=== PATIENT | male | born 1960 | race Caucasian/White ===

== ENCOUNTER 2019-01-13 10:48 | Outpatient (CLI) | payer BC ==
--- NOTE | 2019-01-13 14:20 | PET ---
PET CT: COMPARISON: CT abdomen/pelvis dated 07/27/17. 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 History of prostatectomy for prosta te cancer. TECHNIQUE: A PET CT was performed from the skull base to the mid thigh after administration of 11.9 mCi F18-FDG. FINDINGS: There is a 10.4 cm mass in the spleen. This is central low density which may represent necrosis. Regulo g the periphery of the mass, there is hypermetabolic activity with a max SUV value of 26.1. This mass appears to extend into the 11th intercostal space. There is a subcentimeter hypodensity in the liver, which was too small to definitely characterize. No obvious hypermetabolic activity is seen in this hypodensity, but this is likely below PET resolution . In the left upper lobe, there is a 2.9 cm nodule with a max SUV value of 23.6. There is a left pleura l effusion which does not demonstrate metabolic activity. In the right upper lobe, there is a 1.0 cm lesion with a max SUV value of 12.0. There is a 1.6 cm nodule within the fat just above the left hemidiaphragm with a max SUV value of 15. 6. Along the left hemidiaphragm, there is a focal area of hypermetabolic activity with a max SUV valu e of 5.8. There is a questionable lesion seen on the CT images which may be artifactual, but could al so represent a small nodule along the diaphragm. No suspicious areas of hypermetabolic activity seen within the neck or in the lower abdomen/pelvis. No suspicious areas of hypermetabolic activity seen within the skeleton. IMPRESSION: 1. There is a large splenic mass consistent with a diagnosis of splenic lymphoma. 2. There are nodules in the bilateral upper lobes suspicious for either metastatic disease or multif ocal lymphoma. 3. There are masses just above the immediately adjacent to the left hemidiaphragm. These are nonspec ific, but are concerning for additional disease/metastasis. POS: WHITNEY
== END 2019-01-13 10:49 | disposition home or self-care (01) ==
LOC: PET 10:48
PROVIDERS: ATTEND Internal Medicine Hematology & Oncology
DX: C83.37 Diffuse large B-cell lymphoma, spleen (principal); I08.1 Rheumatic disorders of both mitral and tricuspid valves; R91.8 Other nonspecific abnormal finding of lung field; D73.89 Other diseases of spleen; Z79.899 Other long term (current) drug therapy; Z85.89 Personal history of malignant neoplasm of other organs and systems
CPT/HCPCS: 78815; 93306; A9552

== ENCOUNTER 2019-02-25 08:51 | Outpatient (CLI) | payer BC ==
--- NOTE | 2019-02-25 10:52 | PET ---
Exam: PET CT SKULL TO MID THIGH: COMPARISON: 01/13/2019. HISTORY: Lymphoma. TECHNIQUE: A PET/CT was performed from the skull to the mid thigh after administration of 13 millicuries of F-18 FDG. Evaluation was performed on a Fl[employer] workstation. FINDINGS: NECK: No areas of hypermetabolic activity CHEST: Prior hypermetabolic activity related to pulmonary mass/nodule, has resolved. ABDOMEN/PELVIS: Prior hypermetabolic activity localizing to large splenic mass has resolved. SKELETON: Mild generalized uptake of marrow is likely due to posttreatment response. CT images used for attenuation correction show there is residual groundglass nodularity within the bi lateral upper lobes, smaller in size, relating to prior pulmonary nodules. There is diffuse nonspecific groundglass opacity involving the pulmonary parenchyma bilaterally, preferentially involv ing the lower lobes, with adjacent pleural-based density. Small hypodensity involving the liver near the junction of the medial segment of the left hepatic lobe and anterior segment of right hepati c lobe present, as well as hypodensity within the left hepatic lobe, too small to definitively characterize, grossly stable. IMPRESSION: 1. Interval resolution of prior hypermetabolic activity, which is consistent with interval response to therapy. 2. Interval decrease in size of bilateral pulmonary nodules with mild bilateral remnant nodularity re maining. There is also diffuse groundglass opacification of the lungs bilaterally, preferentially involving the lower lobes. Recommend clinical correlation to exclude an atypical infectious/inflammat ory process. Findings were conveyed via telephone to Dr. Dumont at the time of interpretation. CODE CR Transcribed Date/Time: 02/25/2019 11:02 AM
== END 2019-02-25 08:52 | disposition home or self-care (01) ==
LOC: PET 08:51
PROVIDERS: ATTEND Internal Medicine Hematology & Oncology
DX: C85.90 Non-Hodgkin lymphoma, unspecified, unspecified site (principal)
CPT/HCPCS: 78815; 80053; 82248; 83615; 84100; 84550; 87040; A9552

== ENCOUNTER 2019-03-02 08:30 | Day surgery (SDC) | payer BC ==
[2019-03-01 16:19] VITALS: BMI 26.9
[2019-03-02] MEDS ORDERED: METHOTREXATE SODIUM IT SCH (09:15)
[2019-03-02] MEDS ORDERED: SODIUM CHLORIDE 0.9% IT SCH (09:15)
--- NOTE | 2019-03-02 11:13 | RAD ---
LUMBAR PUNCTURE WITH FLUOROSCOPIC GUIDANCE: HISTORY: B-cell lymphoma. CSF acquisition for cytology and flow cytometry. Intrathecal chemotherapy administr ation. EXPOSURE: 0.3 minutes 47.1 microgray per m2 FINDINGS: Two-view supervisor toy parts former lumbar spine radiograph demonstrates 5 lumbar type vertebral bodies. No fracture or m alalignment. Pseudoarthrosis of the left and right L5 ala with the sacrum are noted, likely due to partial sacralization. FINDINGS: Successful lumbar puncture. A total of 8 cc of clear CSF was collected for evaluation. Methotrexate 12 mg was administered intrathecally. TECHNIQUE: Consent obtained to perform a lumbar puncture for CSF acquisition, as well as intrathecal chemotherap y administration. The L3-L4 level was deemed appropriate. The skin was prepped and draped in a sterile fashion, and 1% lidocaine, buffered with sodium bicarbonate, was used for local anesthesia. Under fluoroscopic guidance, a 22-gauge spinal needle was advanced into the CSF space. Via a short tubing catheter, a t otal of 8 cc of clear CSF was collected. Through the spinal needle, a total of 12 mg of methotrexate was administered over 5 minutes. There were no immediate or postprocedure complications . IMPRESSION: Successful lumbar puncture. Transcribed Date/Time: 03/02/2019 11:39 AM
== END 2019-03-02 11:50 | disposition home or self-care (01) ==
LOC: RAD 08:30
PROVIDERS: ATTEND Internal Medicine Hematology & Oncology
PROC: 009U3ZX Drainage of Spinal Canal, Percutaneous Approach, Diagnostic (ICD-10-PCS; principal; 2019-03-02)
DX: C83.37 Diffuse large B-cell lymphoma, spleen (principal); I25.10 Atherosclerotic heart disease of native coronary artery without angina pectoris; I25.2 Old myocardial infarction; Z79.2 Long term (current) use of antibiotics; Z79.82 Long term (current) use of aspirin; Z79.899 Other long term (current) drug therapy
CPT/HCPCS: 62270; 88112; 88184; J9250

== ENCOUNTER 2019-03-16 14:13 | Outpatient (CLI) | payer BC ==
--- NOTE | 2019-03-16 14:48 | RAD ---
CHEST TWO VIEWS: HISTORY: Ongoing fever. Productive cough. FINDINGS: Right central line and injection port. Heart size is within normal limits. Mild increase in the bro nchovascular markings bilaterally. No confluent pneumonia, overt edema, or pleural effusion. FINDINGS: 1. No acute intrathoracic disease. 2. No evidence for pneumonia. Findings were discussed with Dr. Laura staff at 4:30 p.m. CODE CR POS: OFF
--- NOTE | 2019-03-16 16:37 | ULT ---
EXAM: Bilateral lower extremity venous Doppler HISTORY: Bilateral lower extremity edema and fever. FINDINGS: Grayscale, color-flow, Doppler evaluation, spectral analysis of the bilateral lower extremities venou s structures is performed with 2-D imaging. The bilateral common femoral, superficial femoral, popliteal, posterior tibial, proximal greater saphenous and profunda femoral veins are imaged. There is normal luminal compressibility, flow, and augmentation in the visualized deep venous structu res of the bilateral lower extremities. IMPRESSION: No evidence of a deep vein thrombosis in the visualized deep venous structures bilaterally lower extr emities.
== END 2019-03-16 14:14 | disposition home or self-care (01) ==
LOC: BICRAD 14:13
PROVIDERS: ATTEND Internal Medicine Hematology & Oncology
DX: R50.9 Fever, unspecified (principal); R05 Cough; R60.0 Localized edema; I82.90 Acute embolism and thrombosis of unspecified vein; C18.1 Malignant neoplasm of appendix; C83.37 Diffuse large B-cell lymphoma, spleen
CPT/HCPCS: 71046; 93970

== ENCOUNTER 2019-03-16 17:09 | Inpatient (IN) | payer BC ==
[~2019-03-16 17:09] MED LIST: ISOVUE-370 76%-LOCM 1 ML ONE
[2019-03-16 17:55] LABS: Bilirubin Negative (Negative); Blood, Urine Negative (Negative); Clarity CLEAR (Clear); Glucose, Urine (Dipstick) Negative (Negative); Leukocyte Negative (Negative); Nitrite Negative (Negative); Protein, Urine (Dipstick) Trace mg/dL (Neg-Trace); Specific Gravity, Urine 1.029 (1.002-1.036); Urobilinogen 0.2 mg/dL (0.2-1.0); pH, Urine 6.5 (5.0-9.0)
[2019-03-16 18:11] LABS: #Lymphocytes 0.2 thou/uL (1.20-3.40); #Monocytes 0.4 thou/uL (0.11-0.59); #Neutrophils 5.5 thou/uL (1.40-6.50); %Basophils 0.3 % (0.0-1.0); %Eosinophils 0.4 % (0.0-10.0); %Lymphocytes 3.8 % (21.0-51.0); %Monocytes 6.3 % (0.0-10.0); %Neutrophils 89.2 % (42.0-75.0); Hemoglobin 9.5 g/dL (14.0-18.0); Mean Corpuscular HGB CONC 33.3 g/dL (32.0-36.0); Mean Corpuscular Hemoglobin 31.3 pg (27.0-31.0); Mean Platelet Volume 9.4 fL (7.4-10.4); Platelet Count 103 thou/uL (130-400); RBC Distribution Width 19.8 % (11.5-14.5); Red Blood Cell (RBC) Count 3.03 mill/uL (4.70-6.10); White Blood Cell (WBC) Count 6.1 thou/uL (4.8-10.8)
[2019-03-16 18:27] LABS: ALT (SGPT) 11 U/L (8-55); AST (SGOT) 26 U/L (5-34); Albumin 3.9 g/dL (3.5-5.0); Alkaline Phosphatase 58 U/L (40-150); Anion Gap 16 mmol/L (10-20); BUN (Urea Nitrogen) 13 mg/dL (8.4-25.7); Bilirubin, Total 0.4 mg/dL (0.2-1.2); Calc. Creatinine Clearance 0 mL/min (70-130); Calcium 8.6 mg/dL (7.8-10.44); Carbon Dioxide 20 mmol/L (22-29); Chloride 101 mmol/L (98-107); Estimated GFR-MDRD 68; Globulin 2.4 g/dL (2.4-3.5); Glucose 112 mg/dL (70-105); Potassium 3.8 mmol/L (3.5-5.1); Protein, Total 6.3 g/dL (6.0-8.3); Sodium 133 mmol/L (136-145)
[2019-03-16] MEDS ORDERED: Cefepime 2 GM VIAL ONE (18:29)
[2019-03-16] MEDS ORDERED: Acetaminophen 500 MG TAB ONE (18:29)
[2019-03-16 18:30] LABS: Elliptocytes SLIGHT = 2-5 cells (100X) (0-1/hpf); MDiff Complete? YES; Macrocytosis SLIGHT = 6-15 cells (100X) (0-5/hpf); Microcytosis SLIGHT = 6-15 cells (100X) (0-5/hpf); Platelet Morphology Comment Appears Decreased; Polychromasia SLIGHT = 2-3 cells (100X) (0-2/hpf)
[2019-03-16] MEDS ORDERED: Vancomycin HCl 1.75 GM in Sodium Chloride 0.9% 500 ML IVPB SCH (18:45)
--- NOTE | 2019-03-16 19:19 | CT ---
Contrast-enhanced CTA chest. HISTORY: 58-year-old with history of lymphoma with cough and fever. Contrast-enhanced CTA of the chest performed. 2-D and 3-D reconstruction images performed on an [employer] LS15 3-D workstation. Images demonstrate a 9.0 x 10.0 mm left upper lobe pulmonary parenchymal nodule. Diffuse airspace opacities seen in the left upper lobe and left lung base and lower lobe compatible w ith the possible airspace disease including pneumonia. No definite evidence of air bronchograms seen. Extensive coronary artery calcifications seen. There is a left inferior anterior splenic mass which appears to have extended extracapsularly into th e left intercostal space and peritoneal space and along the peritoneal lining. This mass measures 6.1 x 8.7 cm and may represent splenic metastatic disease. The liver contains a small left lobe cyst unchanged since previous CT from 07/27/2017. Some distal esophageal thickening compatible with esophagitis seen. The pancreas is unremarkable. Adrenal glands and visualized portions of the kidneys unremarkable. No evidence of filling defects seen in the pulmonary arteries to suggest pulmonary emboli. IMPRESSION: 1.: Splenic mass 2: Left upper lobe lung parenchymal pulmonary lesion concerning for metastatic disease. 3: Left upper and lower lobe areas of airspace opacities concerning for diffuse pneumonia.
[2019-03-17] MEDS: Acetaminophen 325 MG TAB PO PRN ×4 (00:06→20:47)
[2019-03-17 04:05] VITALS: BMI 27.7
[2019-03-17] MEDS ORDERED: Ibuprofen 200 MG TAB PO SCH (04:15)
[2019-03-17] MEDS ORDERED: Ondansetron ODT 4 MG TAB PO PRN (05:43)
[2019-03-17] MEDS ORDERED: Ondansetron PF 4 MG/2 ML Vial IVP PRN (05:43)
[2019-03-17] MEDS ORDERED: Cefepime 2 GM in Sodium Chloride 0.9% 100 ML IVPB SCH (06:00)
[2019-03-17] MEDS ORDERED: Vancomycin HCl 1 GM in Premix Bag 1 BAG IVPB SCH (06:00)
--- NOTE | 2019-03-17 06:51 | HP ---
PRIMARY CARE PHYSICIAN: Jay Mathew MD CODE STATUS: Full code. TIME OF EVALUATION: 5:20 a.m. CHIEF COMPLAINT: Fever. HISTORY OF PRESENT ILLNESS: This is a 58-year-old male patient with past medical history of lymphoma, follows with Dr. Bennett as outpatient. The patient also have medical history of coronary artery disease, hyperlipidemia, high cholesterol, hypertension. The patient came to the hospital after having fever, associated with cough and scant sputum production with no clear triggers, no alleviating factors. Symptoms have been present for the past 2 to 3 days. The patient called Dr. Bennett and she asked him to come to the hospital. Symptoms were reported as severe. REVIEW OF SYSTEMS: CONSTITUTIONAL: The patient has fever, chills, generalized weakness. RESPIRATORY: The patient has cough, scant sputum production, and shortness of breath. CARDIOVASCULAR: No chest pain, or palpitation. GASTROINTESTINAL: No nausea, vomiting, diarrhea, or abdominal pain. WARP SPLITTER: No dizziness, headache, or feeling lightheaded. GENITOURINARY: No burning on urination. EXTREMITIES: No leg swelling. All other systems were reviewed and negative except for the findings mentioned above. PAST MEDICAL HISTORY: As mentioned in the HPI. FAMILY HISTORY: Reviewed and no contributory to current presentation. PAST SURGICAL HISTORY: Positive for appendectomy, colostomy, prostatectomy, tonsillectomy. PSYCHIATRIC HISTORY: No previous psychiatric history. SOCIAL HISTORY: No alcohol. No drugs. No smoking history. KNOWN ALLERGIES: No known drug allergies. REPORTED MEDICATIONS: 1. Balsalazide. 2. Azathioprine. 3. Losartan/hydrochlorothiazide. 4. Aspirin. 5. Crestor. 6. Zetia. 7. Metoprolol. PHYSICAL EXAMINATION: VITAL SIGNS: On presentation, blood pressure 105/59 with heart rate 131, respiratory rate was 20, temperature 102.6, pain 0/10, oxygen saturation 97% on room air. GENERAL APPEARANCE: The patient is alert. The patient is warm, febrile, oriented, not in acute distress. HEENT: Eyes, normal conjunctivae. Moist oral mucosa. Anicteric. No JVD. RESPIRATORY: The patient has bilateral air entry with bilateral rales. No wheezing. Symmetric expansion. CARDIOVASCULAR: The patient is tachycardic. Regular rhythm. No murmurs. No gallop. No edema. ABDOMEN: Soft, normal bowel sounds. MUSCULOSKELETAL: Baseline range of motion and strength. No tenderness. SKIN: Warm and intact. No pallor. No rash. No redness. Peripheral pulses are present. Capillary refill seems to be intact. NEUROLOGIC: No evidence of any new focal weakness. Baseline speech. Cranial nerves seems to be intact. PSYCHIATRIC: The patient is in good mood. No anxiety. Optimal judgment. DIAGNOSTIC DATA: EKG was reviewed. The patient has sinus tachycardia at the rate of 128, OK 160, QRS 92, QT corrected 475. LABORATORY DATA: Labs were reviewed. The patient has white count 6.1, hemoglobin 9.5, MCV 94, platelet count 103. Chemistry; sodium 133, potassium 3.8, chloride 101, carbon dioxide 20, anion gap 16, BUN 13, creatinine 1.1, GFR 68, glucose 112, lactic acid 1.8, calcium 9.6, total bilirubin 0.4, AST 26, ALT 11, alkaline phosphatase 58. Serum total protein 6.3, albumin 3.9, globulin 2.4, albumin globulin ratio is 1.6. Urine was done and was negative. ASSESSMENT AND PLAN: The patient will be placed in the hospital with following medical problems: 1. Sepsis. The patient has tachycardia, fever, source is pneumonia, the patient has been started on broad-spectrum antibiotics, given immunosuppression due to lymphoma and also the patient has been in the hospital environment recently, so we are covering for possible MRSA/Pseudomonas, culture has been sent and we will follow sensitivity to adjust treatment. 2. Pneumonia in the left upper and lower lobe as seen on the CT of the chest. Treatment as above. 3. History of lymphoma, stage IV. The patient is following with Dr. Bennett, receiving chemo as per Oncology recommendations. 4. Coronary artery disease, this problem is chronic, seems to be stable, we will follow. Reconcile home medications. 5. History of hyperlipidemia. Low-cholesterol diet is advised. Reconcile home medications. 6. Controlled hypertension, reconcile home medications. Adjust as needed. We will not treat aggressively since the patient is febrile and has risk for hypotension and septic shock. 7. Hyponatremia, sodium 133, this is mild, no need for any acute intervention other than gentle hydration. 8. Normocytic anemia, may be related to previous chemo. We will monitor hemoglobin and treat accordingly. Job ID: [id number] [facility]
[2019-03-17] MEDS ORDERED: Loperamide HCl 2 MG CAP PO PRN (07:05)
[2019-03-17] MEDS ORDERED: Artificial Tears 18 DROP/0.9 ML EA EYE PRN (07:05)
[2019-03-17] MEDS ORDERED: Sodium Chloride 0.65% Nasal 44 ML BOT EA NARE PRN (07:05)
[2019-03-17] MEDS ORDERED: Loratadine 10 MG TAB PO PRN (07:05)
[2019-03-17] MEDS ORDERED: Cepastat Lozenges 1 LOZ PO PRN (07:05)
[2019-03-17] MEDS ORDERED: hydrALAZINE 20 MG/ML VIAL SLOW IVP PRN (07:05)
[2019-03-17] MEDS ORDERED: Bisacodyl 10 MG SUPP PR PRN (07:05)
[2019-03-17] MEDS ORDERED: Diabetic Tussin 200 MG/10 ML UDCUP PO PRN (07:05)
[2019-03-17] MEDS ORDERED: HYDROcodone/Acetaminophen 5/325 mg Tablet PO PRN (07:05)
[2019-03-17] MEDS ORDERED: Eucerin (Mineral Oil/Petrolatum,White) 30 gm Jar TOP PRN (07:05)
[2019-03-17] MEDS ORDERED: Lidocaine 4% PF 5 ML AMP NEB SCH (08:00)
[2019-03-17] MEDS: Fluticasone Propionate Nasal Spray 16 gm Bottle NASAL SCH ×2 (09:40→20:45)
--- NOTE | 2019-03-17 09:47 | PDOC.PN ---
- Subjective Encounter Start Date: 03/17/19 Encounter Start Time: 07:00 -: old records requested/rev pt had fever this morning, he denies chest pain, cough, dyspnea Patient seen and examined. No overnight events - Objective Resuscitation Status - Order Detail: 03/17/19 05:43 Resuscitation Status Routine Resuscitation Status: FULL: Full Resuscitation MAR Reviewed: Yes Vital Signs & Weight: Vital Signs (12 hours) Temp Pulse Resp BP Pulse Ox 03/17/19 07:53 98.8 F 88 16 120/64 96 03/17/19 03:46 102.5 F H 106 H 16 131/60 97 03/16/19 23:18 100.6 F H 98 16 116/57 L 99 03/16/19 21:57 98.3 F 94 12 119/60 97 03/16/19 21:55 99 Weight Weight 188 lb 0.163 oz Result Diagrams: 03/16/19 17:56 03/16/19 17:56 Radiology Reviewed by me: Yes (CTA chest reviewed) Phys Exam - Physical Examination Constitutional: NAD HEENT: PERRLA, moist MMs, sclera anicteric Neck: no JVD, supple Respiratory: no wheezing, no rales, no rhonchi Cardiovascular: RRR, no significant murmur, no rub Gastrointestinal: soft, non-tender, no distention, positive bowel sounds Musculoskeletal: no edema, pulses present Neurological: non-focal, normal sensation, moves all 4 limbs Lymphatic: no nodes Psychiatric: normal affect, A&O x 3 Skin: no rash, normal turgor Dx/Plan (1) Anemia, normocytic normochromic Code(s): D64.9 - ANEMIA, UNSPECIFIED Status: Acute Comment: may be related with chemotherapy, lymphoma (2) Lymphoma Status: Acute Qualifiers: Lymphoma type: unspecified type Comment: metastatic to lung and spleen (3) Multifocal pneumonia Code(s): J18.9 - PNEUMONIA, UNSPECIFIED ORGANISM Status: Acute Comment: with underlying immunocompromised state (4) Sepsis Code(s): A41.9 - SEPSIS, UNSPECIFIED ORGANISM Status: Acute (5) Thrombocytopenia Code(s): D69.6 - THROMBOCYTOPENIA, UNSPECIFIED Status: Acute Comment: may be due to sepsis, as well as possibly lymphoma and chemotherapy (6) Dyslipidemia Code(s): E78.5 - HYPERLIPIDEMIA, UNSPECIFIED Status: Chronic (7) Hypertension Code(s): I10 - ESSENTIAL (PRIMARY) HYPERTENSION Status: Chronic - Plan cont current plan of care, continue antibiotics * continue cefepime, levaquin and vancomycin * pulmonary consulted and plan for bronchoscopy later today * oncology following * repeat labs tomorrow * follow culture * medication reviewed as below * symptomatic treatment Review of Systems - Review of Systems Constitutional: fever. negative: chills, sweats, weakness, malaise, other Respiratory: negative: Cough, Dry, Shortness of Breath, Hemoptysis, SOB with Excertion, Pleuritic Pain, Sputum, Wheezing Cardiovascular: negative: chest pain, palpitations, orthopnea, paroxysmal nocturnal dyspnea, edema, light headedness, other Gastrointestinal: negative: Nausea, Vomiting, Abdominal Pain, Diarrhea, Constipation, Melena, Hematochezia, Other Genitourinary: negative: Dysuria, Frequency, Incontinence, Hematuria, Retention , Other Musculoskeletal: negative: Neck Pain, Shoulder Pain, Arm Pain, Back Pain, Hand Pain, Leg Pain, Foot Pain, Other Skin: negative: Rash, Lesions, Mark, Bruising, Other - Medications/Allergies Allergies/Adverse Reactions: Allergies Allergy/AdvReac Type Severity Reaction Status Date / Time No Known Allergies Allergy Verified 03/17/19 00:13 Medications: Current Medications Acetaminophen (Tylenol) 650 mg PO Q6H PRN PRN Reason: Headache/Fever or Pain Last Admin: 03/17/19 00:06 Dose: 650 mg Hydrocodone Bitart/Acetaminophen ([place] 5/325) 1 tab PO Q4H PRN PRN Reason: Moderate Pain (4-6) Albuterol/Ipratropium (Duoneb) 3 ml NEB [facility] Stop: 03/17/19 18:00 Artificial Tears (Tears Naturale) 2 drop EA EYE PRN PRN PRN Reason: Dry Eyes Aspirin (Aspirin) 325 mg PO DAILY [facility] Azathioprine (Imuran) 200 mg PO DAILY [facility] Balsalazide (Colazal) 1,500 mg PO BID [facility] Bisacodyl (Dulcolax) 10 mg [place] DAILYPRN PRN PRN Reason: Constipation Ezetimibe (Zetia) 10 mg PO HS [facility] Fluticasone Propionate (Flonase Nasal [place]) 0 gm NASAL DAILY [facility] Guaifenesin (Mucinex) 600 mg PO Q12HR [facility] Guaifenesin (Robitussin Sf) 200 mg PO Q4H PRN PRN Reason: Cough Hydralazine HCl (Apresoline) 10 mg SLOW IVP Q4H PRN PRN Reason: SBP > 180 and HR < 70 Hydrochlorothiazide (Hydrochlorothiazide) 6.25 mg PO DAILY [facility] Vancomycin HCl 1 gm/ Device 200 mls @ 200 mls/hr IVPB 0600,1800 [facility] Levofloxacin 750 mg/ Device 150 mls @ 100 mls/hr IVPB Q24HR [facility] Last Admin: 03/17/19 08:25 Dose: 150 mls Cefepime HCl 2 gm/ Sodium (Chloride) 100 mls @ 200 mls/hr IVPB Q12HR [facility] Sodium Chloride (Normal Saline 0.9%) 1,000 mls @ 50 mls/hr IV .Q20H [facility] Lidocaine HCl (Xylocaine 4% Pf) 5 ml NEB [facility] Stop: 03/17/19 18:00 Loperamide HCl (Imodium) 2 mg PO PRN PRN PRN Reason: Diarrhea/Loose Stools Loratadine (Claritin) 10 mg PO DAILYPRN PRN PRN Reason: Sinus Symptoms Losartan Potassium (Cozaar) 50 mg PO DAILY [facility] Metoprolol Succinate (Toprol Xl) 25 mg PO DAILY [facility] Last Admin: 03/17/19 08:26 Dose: 25 mg Mineral Oil/White Petrolatum (Eucerin Cream) 0 gm TOP BIDPRN PRN PRN Reason: Dry Skin Miscellaneous Medication (Pharmacy To Dose) 1 each IVPB ONE PRN PRN Reason: DOSING Stop: 04/16/19 05:18 Ondansetron HCl (Zofran Odt) 4 mg PO Q6H PRN PRN Reason: Nausea/Vomiting Ondansetron HCl (Zofran) 4 mg IVP Q6H PRN PRN Reason: Nausea/Vomiting Rosuvastatin Calcium (Crestor) 20 mg PO HS [facility] Saccharomyces Boulardii (Florastor) 250 mg PO DAILY [facility] Senna/Docusate Sodium (Senokot S) 2 tab PO BID PRN PRN Reason: Constipation Sodium Chloride (Flush - Normal Saline) 10 ml IVF PRN PRN PRN Reason: Saline Flush Sodium Chloride ([place] Nasal [place] 0.65%) 0 ml EA NARE QIDPRN PRN PRN Reason: Nasal Congestion Throat Lozenges (Cepastat Lozenges) 1 zach PO Q2H PRN PRN Reason: Sore Throat Zolpidem Tartrate (Ambien) 5 mg PO HSPRN PRN PRN Reason: Insomnia
[2019-03-17] MEDS ORDERED: Lidocaine 1% PF 5 ML VIAL ONE (09:58)
[2019-03-17] MEDS ORDERED: Succinylcholine Chloride 20 MG/ML 10 ml SYRINGE FS ONE (09:58)
[2019-03-17] MEDS ORDERED: PROPOFOL 200 MG/20 ML VIAL ONE (09:58)
[2019-03-17] MEDS ORDERED: Ondansetron PF 4 MG/2 ML Vial ONE (09:58)
[2019-03-17] MEDS ORDERED: Ketorolac Tromethamine 30 MG/ML VIAL ONE ×2 (09:58→14:14)
[2019-03-17] MEDS: Cefepime 2 GM in Sodium Chloride 0.9% 100 ML IVPB SCH ×2 (10:23→20:44)
[2019-03-17] MEDS: Losartan 25 MG TAB PO SCH (13:41)
[2019-03-17] MEDS: guaiFENesin ER 600 MG TAB PO SCH ×2 (13:41→20:47)
[2019-03-17] MEDS: azaTHIOprine 50 MG TAB PO SCH (13:41)
[2019-03-17] MEDS: Aspirin 325 MG TAB PO SCH (13:41)
[2019-03-17] MEDS: Hydrochlorothiazide 25 MG TAB PO SCH (13:41)
[2019-03-17] MEDS: Saccharomyces boulardii 250 MG CAP PO SCH (13:42)
[2019-03-17] MEDS ORDERED: Fentanyl 100 MCG/2 ML VIAL ONE (14:12)
[2019-03-17] MEDS ORDERED: Promethazine HCl 25 MG/ML VIAL IM PRN (14:46)
[2019-03-17] MEDS ORDERED: HYDROmorphone 2 MG/ML VIAL SLOW IVP PRN (14:46)
[2019-03-17] MEDS ORDERED: Ondansetron HCl/PF 4 MG/2 ML Vial IVP PRN (14:46)
[2019-03-17] MEDS ORDERED: PACU-Morphine 4MG/ML VIAL SLOW IVP PRN (14:46)
[2019-03-17] MEDS ORDERED: Promethazine HCl 25 MG/ML VIAL SLOW IVP PRN (14:46)
--- NOTE | 2019-03-17 14:58 | CON ---
DATE OF CONSULTATION: 03/17/2019 CONSULTING PHYSICIAN: Dr. Bennett. REASON FOR CONSULTATION: Fever and pulmonary infiltrates. HISTORY OF PRESENT ILLNESS: A 58-year-old male, who is currently receiving cycle chemotherapy for lymphoma. Over the past several days, he has had intractable fever, which has not been responsive to Levaquin as an outpatient. He has a cough. He does produce some sputum, but does not know what color it is. He says he has never had pulmonary issues in the past. PAST MEDICAL HISTORY: He has had lymphoma, prostate cancer, and appendix cancer. PAST SURGICAL HISTORY: Appendectomy, colostomy, prostatectomy, and tonsillectomy. ALLERGIES: NONE. SOCIAL HISTORY: Nonsmoker. Does not consume alcohol. 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 MEDICATIONS: Prior to admission: 1. Balsalazide. 2. Azathioprine. 3. Losartan/hydrochlorothiazide. 4. Aspirin. 5. Crestor. 6. Zetia. 7. Metoprolol. REVIEW OF SYSTEMS: Otherwise remarkable except for the fever. FAMILY MEDICAL HISTORY: Unremarkable. PHYSICAL EXAMINATION: VITAL SIGNS: Temperature 102.5, pulse 106, respirations 16, O2 saturation 97%, and blood pressure 131/60. GENERAL: The patient is awake and alert, in no acute distress, but sweaty all over. HEENT: He has alopecia. Oropharynx, no lesions. NECK: No adenopathy or JVD. LUNGS: Clear to auscultation without wheezing. CARDIAC: S1 and S2. Slightly tachycardic. ABDOMEN: Soft and nontender. Past surgical scars noted. EXTREMITIES: No clubbing, cyanosis, or edema. NEUROLOGIC: Grossly intact throughout. LABORATORY DATA: White blood cell count 6.1, hematocrit 28.5, and platelet count 103. Sodium 133, potassium 3.8, chloride 101, CO2 of 20, BUN 13, creatinine 1.1, and glucose 112. His CT shows scant left upper lobe infiltrate with some nodularity. ASSESSMENT: Lymphoma with high fevers despite appropriate treatment with antibiotics. The patient is immunocompromised from previous chemotherapy. He is also taking Imuran. PLAN: 1. Bronchoscopy with lavage and transbronchial biopsies. 2. The patient agreed to the procedure. We discussed risks including bleeding, infection, external lung puncture, and reaction to sedation. He is agreeable to proceed. Job ID: [id number]
--- NOTE | 2019-03-17 16:12 | CON ---
DATE OF CONSULTATION: 03/17/2019 HISTORY OF PRESENT ILLNESS: Mr. Craig is a 58-year-old male with a recent diagnosis of stage IV diffuse large B-cell lymphoma, currently getting CHOP, Rituxan chemotherapy, status post cycle #3 two and half weeks prior to this admission. He has done very well with treatment. However, his second cycle of chemotherapy on day 13 or 14, he developed high fever of 102. He was treated with ciprofloxacin and eventually the fever went away, but was thought to be viral. He was given cycle #3 two and half weeks ago and around day 12 or 13, the fever did resume up to 103 at home. He has been treated as an outpatient with levofloxacin over the last several days, but fever has continued, and therefore he is admitted for fever of unknown origin. As an outpatient, a chest x-ray was done, which did not show any infiltrates. He also had bilateral lower extremity ultrasounds, which did not show DVT. He had blood cultures and urine culture done, which are pending, and his urinalysis was normal. In the emergency room, a CT angiogram was done to rule out pulmonary embolism and left upper lobe and lower lobe infiltrate were seen, more of an airspace opacity, possibly consistent with pneumonia. He has mild cough, but nothing productive. No hemoptysis. He has mild shortness of breath, but it is very mild and he is quite functional. He denies significant back pain or bone pain. Notably, he has been on Imuran for some time for Crohn disease, but has no current diarrhea or bowel issues. PAST MEDICAL HISTORY: 1. Stage IV diffuse large B-cell lymphoma, called stage IV because of probable lung metastases on PET scan done earlier this year, status post cycle #3 of CHOP, Rituxan chemotherapy. 2. History of adenocarcinoma of the appendix in remission since 2017. 3. History of prostate cancer, status post prostatectomy with complications at [facility] last year including need for a urethroplasty. 4. Crohn disease, stable on Imuran. 5. Hypertension. CURRENT MEDICATIONS: 1. Tylenol p.r.n. 2. [place] p.r.n. 3. DuoNeb p.r.n. 4. Aspirin 325 mg p.o. daily. 5. Imuran 200 mg p.o. daily. 6. Colazal 1500 mg p.o. b.i.d. 7. Dulcolax 10 mg p.o. daily. 8. Cefepime 2 g IV q.12 hours. 9. Zetia 10 mg p.o. q.h.s. 10. Flonase p.r.n. 11. Guaifenesin p.r.n. 12. Mucinex p.r.n. 13. Hydralazine p.r.n. 14. Hydrochlorothiazide 6.25 mg p.o. daily. 15. Levofloxacin 750 mg IV daily. 16. Imodium 2 mg p.o. q.4 hours p.r.n. 17. Claritin 10 mg p.o. daily. 18. Cozaar 50 mg p.o. daily. 19. Metoprolol 25 mg p.o. daily. 20. Mineral oil p.r.n. 21. Zofran 4 mg p.o. q.6 hours p.r.n. 22. Crestor 20 mg p.o. q.h.s. 23. Florastor 200 mg p.o. daily. 24. Senokot 2 tablets p.o. b.i.d. p.r.n. 25. Cepastat lozenges p.r.n. 26. Vancomycin 1 g IV q.12 hours. 27. Ambien 5 mg p.o. q.h.s. p.r.n. ALLERGIES: NO KNOWN DRUG ALLERGIES. SOCIAL HISTORY: He lives near [place] with his , who is quite supportive. He also has several children, who are supportive. He denies significant tobacco or alcohol use. FAMILY HISTORY: Noncontributory. REVIEW OF SYSTEMS: Otherwise, 10-point review of systems is negative. PHYSICAL EXAMINATION: VITAL SIGNS: Temperature max 102.5, at home it was 103.1; current temperature 98.8; respirations 16; pulse in the 90s; blood pressure 131/60. GENERAL: He is alert, awake, oriented x3. He is in no acute distress, quite pleasant. HEENT: Extraocular muscles are intact. Pupils are reactive to light. He has no oral cavity lesions. NECK: Supple without lymphadenopathy. CARDIOVASCULAR: Regular rhythm. LUNGS: Clear to auscultation. No crackles. ABDOMEN: Hypoactive bowel sounds. Soft, nontender, nondistended. His left upper quadrant pain has resolved with treatment. LABORATORY DATA: White blood cell count 6.1, hemoglobin 9.5, platelets 103. Sodium 133, potassium 3.8, chloride 101, CO2 of 20, BUN 13, glucose 112, lactic acid 1.8, calcium 8.6. Liver function tests are normal. Urinalysis was clear and yellow with no nitrites or wbc's. IMAGING STUDIES: CT scan of the chest done in the emergency room shows left inferior anterior splenic mass which measures 6.1 x 8.7 cm, this was not compared to his prior films. There was a 9 x 10 mm left upper lobe pulmonary parenchymal nodule as well as diffuse airspace opacities in the left upper lobe and left lung base and lower lobe compatible with possible airspace disease including pneumonia. ASSESSMENT: Mr. Craig is a 58-year-old male with: 1. 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 2. Continued fever despite outpatient management and aggressive antibiotics with a normal white blood cell count. 3. History of adenocarcinoma of the appendix. 4. History of prostate cancer. 5. Air space disease in the left lobe, left lung. 6. Longstanding Imuran use for Crohn disease. PLAN: 1. I discussed with the patient that this could be an atypical infection. We have consulted Pulmonary and hopefully bronchoscopy can be done to help rule out atypical infectious etiologies. 2. I have discussed the case with wood scaler, and we will see if they have anything to add. 3. We have consulted Infectious Disease. 4. Continue high-dose antibiotics. 5. Continue hydration and anti-inflammatories. 6. We will consider doing cycle #4. 7. We will have to see how he is doing with his fever. 8. We will follow with you. Job ID: [id number]
[2019-03-17 16:31] LABS: Ref Lab Test Ordered THIO METS; Reference Lab Name PROMETHEUS
--- NOTE | 2019-03-17 18:33 | CON ---
DATE OF CONSULTATION: 03/17/2019 CHIEF COMPLAINT: Fever. HISTORY OF PRESENT ILLNESS: Mr. Craig is a 58-year-old man, who has been followed by Dr. Mckinney for nava ulcerative colitis diagnosed in 2001. His ulcerative colitis has been in remission with balsalazide and azathioprine for years. He was diagnosed with lymphoma around November. He has received 3 cycles of chemotherapy now with the most recent one being about 3 weeks ago. About a week ago, he started having fevers and chills. He has not had nausea or vomiting. No abdominal pain, diarrhea, or constipation. No blood in the stool. He has one or two formed stools per day, which is remained at his baseline. He has had no chest pain. He has had some cough and was found to have pulmonary infiltrates by imaging. He has been on antibiotics, but the fevers have persisted. PAST MEDICAL HISTORY: 1. Lymphoma diagnosed around 3 months ago, for which he is receiving chemotherapy. 2. History of cancer of the appendix. He had right hemicolectomy and multiple lymph nodes that were negative with that cancer. He did not require chemotherapy or systemic treatment for the appendiceal cancer. 3. History of prostate cancer, status post prostatectomy in 2018. 4. [place] ulcerative colitis diagnosed around 2001, which has been in remission on azathioprine and balsalazide. In the last clinic notes indicate that he has been taking azathioprine 200 mg daily. 5. The patient's last colonoscopy was in June 2018 and showed the patient to be in remission. 6. Hypertension and hyperlipidemia. PAST SURGICAL HISTORY: Right hemicolectomy, prostatectomy, tonsillectomy, and multiple colonoscopies. FAMILY HISTORY: Negative for GI malignancy. SOCIAL HISTORY: No alcohol, tobacco, or drugs. ALLERGIES: NONE. CURRENT MEDICATIONS: Prior to admission: 1. Azathioprine 200 mg daily. 2. Balsalazide 750 mg capsules two capsules twice daily. 3. He has also been taking losartan with hydrochlorothiazide, aspirin, Crestor, Zetia, and metoprolol. REVIEW OF SYSTEMS: Negative x10 systems reviewed except as stated in history of present illness. PHYSICAL EXAMINATION: VITAL SIGNS: Temperature 102.2, pulse 97, and blood pressure 150/68. GENERAL: He is in no acute distress. He is awake and alert. HEENT: Eyes have no scleral icterus. Oropharynx is clear without lesions. No cervical or supraclavicular lymphadenopathy. LUNGS: Clear to auscultation bilaterally. HEART: Regular rate and rhythm without murmur. ABDOMEN: Soft, nontender, and nondistended. Bowel sounds are present. EXTREMITIES: No lower extremity edema. NEUROLOGIC: Cranial nerves are grossly intact. LABORATORY DATA: White blood cell count 6.1, hemoglobin 9.5, platelets 103. Creatinine 1.11. Bilirubin 0.4. AST 26, ALT 11, alkaline phosphatase 58, and albumin 3.9. IMPRESSION: 1. Lymphoma, for which he is receiving chemotherapy. His last dose 3 weeks ago. 2. Fever. He has been noted to have pulmonary infiltrates by CT of the chest and is planned to undergo bronchoscopy by Dr. Rodriguez. 3. [place] ulcerative colitis, which has been in remission on azathioprine and balsalazide. We will not plan on stopping these medications at this time. Given his anemia and thrombocytopenia and increased risks with immunosuppression, I will check thiopurine metabolite levels. 4. History of appendiceal cancer, status post right hemicolectomy. RECOMMENDATIONS: 1. He will continue antibiotics and further treatment per the hospitalist and Pulmonary Services. 2. We will check thiopurine metabolite levels. In the meantime, we will continue the azathioprine and balsalazide at his usual doses. Job ID: [id number]
[2019-03-17] MEDS: Sodium Chloride 0.9% 1,000 ML IV SCH (20:43)
[2019-03-17] MEDS: Ezetimibe 10 MG TAB PO SCH (20:47)
[2019-03-17] MEDS: Rosuvastatin 20 MG TAB PO SCH (20:48)
[2019-03-17] MEDS: Zolpidem Tartrate 5 MG TAB PO PRN (20:51)
--- NOTE | 2019-03-17 22:15 | OP ---
DATE OF PROCEDURE: 03/17/2019 PROCEDURE: Bronchoscopy. PREOPERATIVE DIAGNOSES: Lymphoma, fever of unknown origin. POSTOPERATIVE DIAGNOSIS: Lymphoma, fever of unknown origin. ANESTHESIA: General endotracheal. DESCRIPTION OF PROCEDURE: Informed consent was obtained prior to the procedure. The patient understood the risks involved and agreed to proceed. The patient was brought to the endoscopy suite. He was intubated by the nurse and director of outpatient services with an 8.0 endotracheal tube. Using an Olympus bronchoscope, the scope was placed through an adapter into the patient's endotracheal tube while he was on volume cycled ventilation. The trachea was normal in appearance. The right upper lobe, right middle lobe, and right lower lobe were normal in appearance. The left lower lobe and left upper lobe were normal in appearance. Bronchoalveolar lavage was performed in the left upper lobe as that was the area that seemed to be most affected by the CT scan that I read this morning. Approximately 100 mL of normal saline was instilled and aspirated. This was sent for routine studies and Pneumocystis stain. He tolerated the procedure well and sent to the recovery area in stable condition. Job ID: [id number]
[2019-03-17] MEDS: Vancomycin HCl 1 GM in Premix Bag 1 BAG IVPB SCH (23:15)
[2019-03-18] MEDS ORDERED: Ibuprofen 600 MG TAB PO PRN (00:02)
[2019-03-18] MEDS ORDERED: Ibuprofen 200 MG TAB PO PRN (00:36)
[2019-03-18] MEDS ORDERED: Acetaminophen 650 MG in Premix Bag 1 BAG IVPB PRN (03:00)
[2019-03-18 06:06] LABS: #Lymphocytes 0.2 thou/uL (1.20-3.40); #Monocytes 0.4 thou/uL (0.11-0.59); #Neutrophils 3.7 thou/uL (1.40-6.50); %Basophils 0.1 % (0.0-1.0); %Eosinophils 0.4 % (0.0-10.0); %Lymphocytes 4.5 % (21.0-51.0); %Monocytes 9.2 % (0.0-10.0); %Neutrophils 85.8 % (42.0-75.0); Mean Corpuscular HGB CONC 33.2 g/dL (32.0-36.0); Mean Corpuscular Volume 93.4 fL (78.0-98.0); Mean Platelet Volume 8.6 fL (7.4-10.4); Platelet Count 109 thou/uL (130-400); RBC Distribution Width 20.2 % (11.5-14.5); Red Blood Cell (RBC) Count 2.59 mill/uL (4.70-6.10); White Blood Cell (WBC) Count 4.3 thou/uL (4.8-10.8)
[2019-03-18 06:36] LABS: Anion Gap 13 mmol/L (10-20); BUN (Urea Nitrogen) 12 mg/dL (8.4-25.7); Calc. Creatinine Clearance 89 mL/min (70-130); Calcium 8.6 mg/dL (7.8-10.44); Carbon Dioxide 22 mmol/L (22-29); Chloride 104 mmol/L (98-107); Estimated GFR-MDRD 70; Glucose 100 mg/dL (70-105); Potassium 3.5 mmol/L (3.5-5.1); Sodium 135 mmol/L (136-145)
--- NOTE | 2019-03-18 09:01 | PRG ---
DATE OF SERVICE: 03/18/2019 SUBJECTIVE: Mr. Craig is still having episodic fevers, but this morning he is down to 99.0. His cough remains about the same. OBJECTIVE: VITAL SIGNS: On exam, his heart rate is 81, O2 saturation 99%, blood pressure 112/56. HEENT: Remarkable alopecia. NECK: No JVD. LUNGS: Clear anteriorly bilaterally. CARDIOVASCULAR: S1-S2 regular without audible murmur. ABDOMEN: Soft and nontender. EXTREMITIES: No edema. LABORATORY DATA: Sodium 135, potassium 3.5, chloride 104, CO2 of 22, BUN 12, creatinine 1.1, and glucose 100. White cell count 4.3, hematocrit 24.1, and platelet count 109. ASSESSMENT: Fever in an immunocompromised patient with lymphoma who has been on episodic chemotherapy, but is also on azathioprine for ulcerative colitis. PLAN: He is currently on broad-spectrum IV antibiotics. I will go ahead and add some antifungal coverage. I am waiting Pneumocystis stain. If that is positive, then we will add Pneumocystis coverage. He is not hypoxic, so I think we can forego any type of steroid therapy at this time. Job ID: [id number]
[2019-03-18] MEDS: Fluticasone Propionate Nasal Spray 16 gm Bottle NASAL SCH (09:04)
[2019-03-18] MEDS: Saccharomyces boulardii 250 MG CAP PO SCH (09:05)
[2019-03-18] MEDS: Aspirin 325 MG TAB PO SCH (09:06)
[2019-03-18] MEDS: guaiFENesin ER 600 MG TAB PO SCH ×2 (09:06→22:10)
[2019-03-18] MEDS: azaTHIOprine 50 MG TAB PO SCH (09:06)
[2019-03-18] MEDS: Hydrochlorothiazide 25 MG TAB PO SCH (09:06)
[2019-03-18] MEDS: Losartan 25 MG TAB PO SCH (09:06)
[2019-03-18] MEDS: Cefepime 2 GM in Sodium Chloride 0.9% 100 ML IVPB SCH ×2 (09:07→22:11)
[2019-03-18] MEDS: Sodium Chloride 0.9% 1,000 ML IV SCH (09:08)
[2019-03-18 10:48] LABS: Vancomycin, Trough 9.5 ug/mL
[2019-03-18] MEDS: Senokot S 8.6-50 MG TAB PO PRN (11:15)
[2019-03-18] MEDS: Acetaminophen 500 MG TAB PO PRN ×2 (11:15→22:17)
[2019-03-18] MEDS: Vancomycin HCl 1 GM in Premix Bag 1 BAG IVPB SCH (11:20)
[2019-03-18] MEDS: Micafungin 100 MG in Sodium Chloride 0.9% 100 ML IVPB SCH (11:26)
[2019-03-18] MEDS ORDERED: Acetaminophen 650 MG in Premix Bag 1 BAG IVPB SCH (11:30)
[2019-03-18] MEDS: Ibuprofen 800 MG TAB PO PRN ×2 (11:53→23:32)
--- NOTE | 2019-03-18 12:29 | PDOC.PN ---
- Subjective Encounter Start Date: 03/18/19 Encounter Start Time: 07:00 pt is still febrile, has dry cough, no diarrhoea,no rash Patient seen and examined. No overnight events - Objective Resuscitation Status - Order Detail: 03/17/19 05:43 Resuscitation Status Routine Resuscitation Status: FULL: Full Resuscitation MAR Reviewed: Yes Vital Signs & Weight: Vital Signs (12 hours) Temp Pulse Resp BP Pulse Ox 03/18/19 11:45 102.6 F H 03/18/19 11:00 102.9 F H 103 H 20 117/59 L 94 L 03/18/19 07:35 99.0 F 91 18 112/56 L 99 03/18/19 03:00 103.4 F H 70 18 97 Weight Weight 188 lb 0.163 oz I&O: 03/17/19 03/18/19 03/19/19 06:59 06:59 06:59 Intake Total 1300 Balance 1300 Result Diagrams: 03/18/19 05:47 03/18/19 05:10 Phys Exam - Physical Examination Constitutional: NAD HEENT: PERRLA, moist MMs, sclera anicteric Neck: no JVD, supple Respiratory: no wheezing, no rales, no rhonchi Cardiovascular: RRR, no significant murmur, no rub Gastrointestinal: soft, non-tender, no distention, positive bowel sounds Musculoskeletal: no edema, pulses present Neurological: non-focal, normal sensation, moves all 4 limbs Lymphatic: no nodes Psychiatric: normal affect, A&O x 3 Skin: no rash, normal turgor Dx/Plan (1) Sepsis Code(s): A41.9 - SEPSIS, UNSPECIFIED ORGANISM Status: Acute (2) Multifocal pneumonia Code(s): J18.9 - PNEUMONIA, UNSPECIFIED ORGANISM Status: Acute Comment: with underlying immunocompromised state (3) Anemia, normocytic normochromic Code(s): D64.9 - ANEMIA, UNSPECIFIED Status: Acute Comment: may be related with chemotherapy, lymphoma (4) Lymphoma Status: Acute Qualifiers: Lymphoma type: unspecified type Comment: metastatic to lung and spleen (5) Thrombocytopenia Code(s): D69.6 - THROMBOCYTOPENIA, UNSPECIFIED Status: Acute Comment: may be due to sepsis, as well as possibly lymphoma and chemotherapy (6) Dyslipidemia Code(s): E78.5 - HYPERLIPIDEMIA, UNSPECIFIED Status: Chronic (7) Hypertension Code(s): I10 - ESSENTIAL (PRIMARY) HYPERTENSION Status: Chronic - Plan cont current plan of care, plan discussed w/ family, continue antibiotics * will check urine histoplasma and serum cryptococcal antigen. * Caspofungin added today * agree with ID consult * continue empiric cefepime, levaquin and vancomycin * may be fever related with lymphoma vs ?fungal infection * medication reviewed as below * symptomatic treatment Review of Systems - Review of Systems Constitutional: fever. negative: chills, sweats, weakness, malaise, other ENT: negative: Ear Pain, Ear Discharge, Nose Pain, Nose Discharge, Nose Congestion, Mouth Pain, Mouth Swelling, Throat Pain, Throat Swelling, Other Respiratory: negative: Cough, Dry, Shortness of Breath, Hemoptysis, SOB with Excertion, Pleuritic Pain, Sputum, Wheezing Cardiovascular: negative: chest pain, palpitations, orthopnea, paroxysmal nocturnal dyspnea, edema, light headedness, other Gastrointestinal: negative: Nausea, Vomiting, Abdominal Pain, Diarrhea, Constipation, Melena, Hematochezia, Other Genitourinary: negative: Dysuria, Frequency, Incontinence, Hematuria, Retention , Other Musculoskeletal: negative: Neck Pain, Shoulder Pain, Arm Pain, Back Pain, Hand Pain, Leg Pain, Foot Pain, Other - Medications/Allergies Allergies/Adverse Reactions: Allergies Allergy/AdvReac Type Severity Reaction Status Date / Time No Known Allergies Allergy Verified 03/17/19 00:13 Medications: Current Medications Acetaminophen (Tylenol) 1,000 mg PO Q8H PRN PRN Reason: Headache/Fever or Pain Last Admin: 03/18/19 11:15 Dose: 1,000 mg Hydrocodone Bitart/Acetaminophen ([place] 5/325) 1 tab PO Q4H PRN PRN Reason: Moderate Pain (4-6) Artificial Tears (Tears Naturale) 2 drop EA EYE PRN PRN PRN Reason: Dry Eyes Aspirin (Aspirin) 325 mg PO DAILY [facility] Last Admin: 03/18/19 09:06 Dose: 325 mg Azathioprine (Imuran) 200 mg PO DAILY [facility] Last Admin: 03/18/19 09:06 Dose: 200 mg Balsalazide (Colazal) 1,500 mg PO BID [facility] Last Admin: 03/18/19 09:05 Dose: 1,500 mg Bisacodyl (Dulcolax) 10 mg ID DAILYPRN PRN PRN Reason: Constipation Ezetimibe (Zetia) 10 mg PO HS [facility] Last Admin: 03/17/19 20:47 Dose: 10 mg Fluticasone Propionate (Flonase Nasal [place]) 0 gm NASAL DAILY [facility] Last Admin: 03/18/19 09:04 Dose: 1 spr Guaifenesin (Mucinex) 600 mg PO Q12HR [facility] Last Admin: 03/18/19 09:06 Dose: 600 mg Guaifenesin (Robitussin Sf) 200 mg PO Q4H PRN PRN Reason: Cough Hydralazine HCl (Apresoline) 10 mg SLOW IVP Q4H PRN PRN Reason: SBP > 180 and HR < 70 Hydrochlorothiazide (Hydrochlorothiazide) 6.25 mg PO DAILY [facility] Last Admin: 03/18/19 09:06 Dose: Not Given Levofloxacin 750 mg/ Device 150 mls @ 100 mls/hr IVPB Q24HR [facility] Last Admin: 03/18/19 09:06 Dose: 150 mls Cefepime HCl 2 gm/ Sodium (Chloride) 100 mls @ 200 mls/hr IVPB Q12HR [facility] Last Admin: 03/18/19 09:07 Dose: 100 mls Sodium Chloride (Normal Saline 0.9%) 1,000 mls @ 50 mls/hr IV .Q20H [facility] Last Admin: 03/18/19 09:08 Dose: 1,000 mls Micafungin Sodium 100 mg/ (Sodium Chloride) 100 mls @ 100 mls/hr IVPB Q24H [facility] Last Admin: 03/18/19 11:26 Dose: 100 mls Acetaminophen 650 mg/ Device 65 mls @ 400 mls/hr IVPB ONE [facility] Stop: 03/19/19 11:31 Vancomycin HCl 1.5 gm/ Device 300 mls @ 200 mls/hr IVPB 1100,2300 [facility] Ibuprofen (Motrin) 800 mg PO Q8H PRN PRN Reason: Fever Last Admin: 03/18/19 11:53 Dose: 800 mg Loperamide HCl (Imodium) 2 mg PO PRN PRN PRN Reason: Diarrhea/Loose Stools Loratadine (Claritin) 10 mg PO DAILYPRN PRN PRN Reason: Sinus Symptoms Losartan Potassium (Cozaar) 50 mg PO DAILY [facility] Last Admin: 03/18/19 09:06 Dose: Not Given Metoprolol Succinate (Toprol Xl) 25 mg PO DAILY [facility] Last Admin: 03/18/19 09:06 Dose: 25 mg Mineral Oil/White Petrolatum (Eucerin Cream) 0 gm TOP BIDPRN PRN PRN Reason: Dry Skin Miscellaneous Medication (Pharmacy To Dose) 1 each IVPB ONE PRN PRN Reason: DOSING Stop: 04/16/19 05:18 Ondansetron HCl (Zofran Odt) 4 mg PO Q6H PRN PRN Reason: Nausea/Vomiting Ondansetron HCl (Zofran) 4 mg IVP Q6H PRN PRN Reason: Nausea/Vomiting Pantoprazole Sodium (Protonix) 40 mg PO DAILY [facility] Rosuvastatin Calcium (Crestor) 20 mg PO HS [facility] Last Admin: 03/17/19 20:48 Dose: 20 mg Saccharomyces Boulardii (Florastor) 250 mg PO DAILY [facility] Last Admin: 03/18/19 09:05 Dose: 250 mg Senna/Docusate Sodium (Senokot S) 2 tab PO BID PRN PRN Reason: Constipation Last Admin: 03/18/19 11:15 Dose: 2 tab Sodium Chloride (Flush - Normal Saline) 10 ml IVF PRN PRN PRN Reason: Saline Flush Last Admin: 03/18/19 09:07 Dose: 10 ml Sodium Chloride ([place] Nasal [place] 0.65%) 0 ml EA NARE QIDPRN PRN PRN Reason: Nasal Congestion Throat Lozenges (Cepastat Lozenges) 1 zach PO Q2H PRN PRN Reason: Sore Throat Zolpidem Tartrate (Ambien) 5 mg PO HSPRN PRN PRN Reason: Insomnia Last Admin: 03/17/19 20:51 Dose: 5 mg
--- NOTE | 2019-03-18 13:32 | PQF ---
CLINICAL DOCUMENTATION IMPROVEMENT CLARIFICATION FORM: ICD-10 Updated PLEASE DO AN ADDENDUM TO THE PROGRESS NOTE WITH ANY DOCUMENTATION UPDATES OR ADDITIONS AND CARRY THROUGH TO DC SUMMARY. THANK YOU. DATE: 03/18/19 ATTN: DR. WHYTE Please exercise your independent, professional judgment in responding to the clarification form. Clinical indicators are provided on the bottom of this form for your review Please check appropriate box(s): [ x ] Empirically treating Gram Negative Pneumonia [ ] Empirically treating Anaerobic Pneumonia [ ] Pneumonia secondary to (specify organism / underlying disease) [ ] Simple Pneumonia (community acquired - nosocomial) [ ] Other diagnosis [ ] Unable to determine In addition, please specify: Present on Admission (POA): [ x ] Yes [ ] No [ ] Unable to determine For continuity of documentation, please document condition throughout progress notes and discharge summary. Thank You. CLINICAL INDICATORS - SIGNS / SYMPTOMS / LABS DX: PNEUMONIA PULSE 131 TEMP 102.6 RISKS: IMMUNOCOMPROMISED TREATMENT: IV VANCOMYCIN (ER-PRESENT) IV CEFEPIME (ER-PRESENT) IV FLUIDS (ER-PRESENT) BLOOD CULTURES CULTURES OF BRONCHIAL WASHINGS SAP Spool Cleaner [employer] Winform Viewer (This form is maintained as a part of the permanent medical record) 2014 [email or web address]. All Rights Reserved CLYDE [email or web address] Office: [phone] MTDPeter
--- NOTE | 2019-03-18 17:15 | PRG ---
DATE OF SERVICE: 03/18/2019 SUBJECTIVE: Mr. Craig has no abdominal pain, nausea or vomiting, or diarrhea. OBJECTIVE: VITAL SIGNS: Temperature this morning was 102.9, this afternoon 98.5; pulse 74; blood pressure 116/65; and oxygen saturation 93%. GENERAL: He is in no acute distress. Alert and oriented x3. LUNGS: Clear to auscultation bilaterally. HEART: Regular rate and rhythm. ABDOMEN: Soft, nontender, and nondistended. Bowel sounds are present. EXTREMITIES: No lower extremity edema. LABORATORY DATA: White blood cell count 4.3, hemoglobin 8.0, and platelets 109. Creatinine 1.08. IMPRESSION: 1. Fever, which appears to be of pulmonary source. 2. Lymphoma for which he has been receiving chemotherapy. Last dose is 3 weeks ago. 3. [place] ulcerative colitis. This has been in remission for years on azathioprine and balsalazide. 4. History of appendiceal cancer. 5. Pancytopenia. Given the pancytopenia, I would rather hold off the azathioprine and then add it back in at lower dose as his blood counts improved. RECOMMENDATIONS: 1. I will hold azathioprine for now. 2. Continue balsalazide. 3. He continues to undergo workup of his fever by Pulmonology and Internal Medicine. Job ID: [id number]
[2019-03-18] MEDS: Rosuvastatin 20 MG TAB PO SCH (22:10)
[2019-03-18] MEDS: Zolpidem Tartrate 5 MG TAB PO PRN (22:10)
[2019-03-18] MEDS: Ezetimibe 10 MG TAB PO SCH (22:10)
[2019-03-18] MEDS: Vancomycin HCl 1.5 GM in Sodium Chloride 0.9% 250 ML 300 ML IVPB SCH (22:19)
[2019-03-18] MEDS ORDERED: Vancomycin HCl 1.5 GM in Premix Bag 1 BAG IVPB SCH (23:00)
[2019-03-19 04:45] LABS: #Eosinphils 0.1 thou/uL (0.0-0.7); #Lymphocytes 0.2 thou/uL (1.20-3.40); #Monocytes 0.3 thou/uL (0.11-0.59); #Neutrophils 3.2 thou/uL (1.40-6.50); %Basophils 0.8 % (0.0-1.0); %Eosinophils 1.4 % (0.0-10.0); %Lymphocytes 4.1 % (21.0-51.0); %Monocytes 7.5 % (0.0-10.0); %Neutrophils 86.2 % (42.0-75.0); Hemoglobin 8.7 g/dL (14.0-18.0); Mean Corpuscular HGB CONC 33.1 g/dL (32.0-36.0); Mean Corpuscular Hemoglobin 31.2 pg (27.0-31.0); Mean Corpuscular Volume 94.1 fL (78.0-98.0); Mean Platelet Volume 9.7 fL (7.4-10.4); Platelet Count 118 thou/uL (130-400); RBC Distribution Width 20.1 % (11.5-14.5); Red Blood Cell (RBC) Count 2.78 mill/uL (4.70-6.10); White Blood Cell (WBC) Count 3.7 thou/uL (4.8-10.8)
[2019-03-19] MEDS: Acetaminophen 500 MG TAB PO PRN ×2 (08:35→15:49)
[2019-03-19] MEDS: Cefepime 2 GM in Sodium Chloride 0.9% 100 ML IVPB SCH ×2 (08:37→20:25)
[2019-03-19] MEDS: Senokot S 8.6-50 MG TAB PO PRN (08:39)
[2019-03-19] MEDS: Saccharomyces boulardii 250 MG CAP PO SCH (08:45)
[2019-03-19] MEDS: guaiFENesin ER 600 MG TAB PO SCH ×2 (08:46→20:26)
[2019-03-19] MEDS: Hydrochlorothiazide 25 MG TAB PO SCH (08:46)
[2019-03-19] MEDS: Losartan 25 MG TAB PO SCH (08:48)
[2019-03-19] MEDS: Aspirin 325 MG TAB PO SCH (08:48)
[2019-03-19] MEDS: Fluticasone Propionate Nasal Spray 16 gm Bottle NASAL SCH (08:50)
--- NOTE | 2019-03-19 09:59 | PDOC.PN ---
- Subjective Encounter Start Date: 03/19/19 Encounter Start Time: 07:00 this morning pt has fever with chills, has dry cough, has minor dull ache pain over lymphoma site, no diarrhoea Patient seen and examined. No overnight events - Objective Resuscitation Status - Order Detail: 03/17/19 05:43 Resuscitation Status Routine Resuscitation Status: FULL: Full Resuscitation MAR Reviewed: Yes Vital Signs & Weight: Vital Signs (12 hours) Temp Pulse Resp BP Pulse Ox 03/19/19 08:33 100.1 F H 03/19/19 07:16 98.5 F 92 16 131/61 100 03/19/19 04:37 98.4 F 03/19/19 02:14 98.7 F 03/19/19 00:45 100.4 F H 03/18/19 22:56 103.1 F H 03/18/19 22:15 103.2 F H Weight Weight 188 lb 0.163 oz I&O: 03/18/19 03/19/19 03/20/19 06:59 06:59 06:59 Intake Total 1300 1850 Output Total 1750 Balance 1300 100 Result Diagrams: 03/19/19 04:05 03/18/19 05:10 Phys Exam - Physical Examination Constitutional: NAD HEENT: PERRLA, moist MMs, sclera anicteric Neck: no JVD, supple Respiratory: no wheezing, no rales, no rhonchi Cardiovascular: RRR, no significant murmur, no rub Gastrointestinal: soft, non-tender, no distention, positive bowel sounds Musculoskeletal: no edema, pulses present Neurological: non-focal, normal sensation, moves all 4 limbs Lymphatic: no nodes Psychiatric: normal affect, A&O x 3 Skin: no rash, normal turgor Dx/Plan (1) Sepsis Code(s): A41.9 - SEPSIS, UNSPECIFIED ORGANISM Status: Acute (2) Multifocal pneumonia Code(s): J18.9 - PNEUMONIA, UNSPECIFIED ORGANISM Status: Acute Comment: with underlying immunocompromised state (3) Anemia, normocytic normochromic Code(s): D64.9 - ANEMIA, UNSPECIFIED Status: Acute Comment: may be related with chemotherapy, lymphoma (4) Lymphoma Status: Acute Qualifiers: Lymphoma type: unspecified type Comment: metastatic to lung and spleen (5) Thrombocytopenia Code(s): D69.6 - THROMBOCYTOPENIA, UNSPECIFIED Status: Acute Comment: may be due to sepsis, as well as possibly lymphoma and chemotherapy (6) Dyslipidemia Code(s): E78.5 - HYPERLIPIDEMIA, UNSPECIFIED Status: Chronic (7) Hypertension Code(s): I10 - ESSENTIAL (PRIMARY) HYPERTENSION Status: Chronic - Plan cont current plan of care, plan discussed w/ family, continue antibiotics * so far all culture negative * currently on cefepime, levaquin and vancomycin as well as caspofungin * ID consulted * medication reviewed as below * symptomatic treatment. Review of Systems - Review of Systems Constitutional: fever, chills. negative: sweats, weakness, malaise, other Respiratory: Cough, Dry. negative: Shortness of Breath, Hemoptysis, SOB with Excertion, Pleuritic Pain, Sputum, Wheezing Cardiovascular: negative: chest pain, palpitations, orthopnea, paroxysmal nocturnal dyspnea, edema, light headedness, other Gastrointestinal: negative: Nausea, Vomiting, Abdominal Pain, Diarrhea, Constipation, Melena, Hematochezia, Other Genitourinary: negative: Dysuria, Frequency, Incontinence, Hematuria, Retention , Other Musculoskeletal: negative: Neck Pain, Shoulder Pain, Arm Pain, Back Pain, Hand Pain, Leg Pain, Foot Pain, Other Skin: negative: Rash, Lesions, Mark, Bruising, Other - Medications/Allergies Allergies/Adverse Reactions: Allergies Allergy/AdvReac Type Severity Reaction Status Date / Time No Known Allergies Allergy Verified 03/17/19 00:13 Medications: Current Medications Acetaminophen (Tylenol) 1,000 mg PO Q8H PRN PRN Reason: Headache/Fever or Pain Last Admin: 03/19/19 08:35 Dose: 1,000 mg Hydrocodone Bitart/Acetaminophen ([place] 5/325) 1 tab PO Q4H PRN PRN Reason: Moderate Pain (4-6) Artificial Tears (Tears Naturale) 2 drop EA EYE PRN PRN PRN Reason: Dry Eyes Aspirin (Aspirin) 325 mg PO DAILY [facility] Last Admin: 03/19/19 08:48 Dose: 325 mg Balsalazide (Colazal) 1,500 mg PO BID [facility] Last Admin: 03/19/19 08:49 Dose: 1,500 mg Bisacodyl (Dulcolax) 10 mg [place] DAILYPRN PRN PRN Reason: Constipation Ezetimibe (Zetia) 10 mg PO HS [facility] Last Admin: 03/18/19 22:10 Dose: 10 mg Fluticasone Propionate (Flonase Nasal [place]) 0 gm NASAL DAILY [facility] Last Admin: 03/19/19 08:50 Dose: 1 spr Guaifenesin (Mucinex) 600 mg PO Q12HR [facility] Last Admin: 03/19/19 08:46 Dose: 600 mg Guaifenesin (Robitussin Sf) 200 mg PO Q4H PRN PRN Reason: Cough Last Admin: 03/18/19 22:17 Dose: 200 mg Hydralazine HCl (Apresoline) 10 mg SLOW IVP Q4H PRN PRN Reason: SBP > 180 and HR < 70 Hydrochlorothiazide (Hydrochlorothiazide) 6.25 mg PO DAILY [facility] Last Admin: 03/19/19 08:46 Dose: 6.25 mg Levofloxacin 750 mg/ Device 150 mls @ 100 mls/hr IVPB Q24HR [facility] Last Admin: 03/19/19 09:17 Dose: 150 mls Cefepime HCl 2 gm/ Sodium (Chloride) 100 mls @ 200 mls/hr IVPB Q12HR [facility] Last Admin: 03/19/19 08:37 Dose: 100 mls Sodium Chloride (Normal Saline 0.9%) 1,000 mls @ 50 mls/hr IV .Q20H [facility] Last Admin: 03/18/19 09:08 Dose: 1,000 mls Micafungin Sodium 100 mg/ (Sodium Chloride) 100 mls @ 100 mls/hr IVPB Q24H [facility] Last Admin: 03/18/19 11:26 Dose: 100 mls Acetaminophen 650 mg/ Device 65 mls @ 400 mls/hr IVPB ONE [facility] Stop: 03/19/19 11:31 Vancomycin HCl 1.5 gm/ Sodium (Chloride) 300 mls @ 200 mls/hr IVPB 1100,2300 [facility] Last Admin: 03/18/19 22:19 Dose: 300 mls Ibuprofen (Motrin) 800 mg PO Q8H PRN PRN Reason: Fever Last Admin: 03/18/19 23:32 Dose: 800 mg Loperamide HCl (Imodium) 2 mg PO PRN PRN PRN Reason: Diarrhea/Loose Stools Loratadine (Claritin) 10 mg PO DAILYPRN PRN PRN Reason: Sinus Symptoms Losartan Potassium (Cozaar) 50 mg PO DAILY [facility] Last Admin: 03/19/19 08:48 Dose: 50 mg Metoprolol Succinate (Toprol Xl) 25 mg PO DAILY [facility] Last Admin: 03/19/19 08:45 Dose: 25 mg Mineral Oil/White Petrolatum (Eucerin Cream) 0 gm TOP BIDPRN PRN PRN Reason: Dry Skin Miscellaneous Medication (Pharmacy To Dose) 1 each IVPB ONE PRN PRN Reason: DOSING Stop: 04/16/19 05:18 Ondansetron HCl (Zofran Odt) 4 mg PO Q6H PRN PRN Reason: Nausea/Vomiting Ondansetron HCl (Zofran) 4 mg IVP Q6H PRN PRN Reason: Nausea/Vomiting Pantoprazole Sodium (Protonix) 40 mg PO DAILY [facility] Last Admin: 03/19/19 08:45 Dose: 40 mg Rosuvastatin Calcium (Crestor) 20 mg PO HS [facility] Last Admin: 03/18/19 22:10 Dose: 20 mg Saccharomyces Boulardii (Florastor) 250 mg PO DAILY [facility] Last Admin: 03/19/19 08:45 Dose: 250 mg Senna/Docusate Sodium (Senokot S) 2 tab PO BID PRN PRN Reason: Constipation Last Admin: 03/19/19 08:39 Dose: 2 tab Sodium Chloride (Flush - Normal Saline) 10 ml IVF PRN PRN PRN Reason: Saline Flush Last Admin: 03/18/19 09:07 Dose: 10 ml Sodium Chloride ([place] Nasal [place] 0.65%) 0 ml EA NARE QIDPRN PRN PRN Reason: Nasal Congestion Throat Lozenges (Cepastat Lozenges) 1 zach PO Q2H PRN PRN Reason: Sore Throat Zolpidem Tartrate (Ambien) 5 mg PO HSPRN PRN PRN Reason: Insomnia Last Admin: 03/18/19 22:10 Dose: 5 mg
[2019-03-19] MEDS: Micafungin 100 MG in Sodium Chloride 0.9% 100 ML IVPB SCH (10:53)
[2019-03-19] MEDS: Vancomycin HCl 1.5 GM in Sodium Chloride 0.9% 250 ML 300 ML IVPB SCH ×2 (13:22→23:19)
[2019-03-19] MEDS ORDERED: ISOVUE-370 76%-LOCM 1 ML ONE (15:53)
--- NOTE | 2019-03-19 17:28 | PRG ---
DATE OF SERVICE: 03/19/2019 SERVICE: Pulmonary Medicine. INTERVAL HISTORY: The patient is doing fine from respiratory standpoint. He indicates that he continues to have a little bit of a cough, but not bringing up much sputum. The dyspnea is much improved. He continues to have intermittent fevers. Outside of that, complete review of systems is negative except for a little bit of fullness in the face. He denies having any coryza or headache. He indicates to me that all of his family members except for his got sick about a month ago. She seemed to not have any problems, though 2 weeks ago, she had some congestion in the face, but it was transient. PHYSICAL EXAMINATION: VITAL SIGNS: Currently, afebrile with a temperature of 99.3. Pulse 87, blood pressure 133/62, respirations 16, and saturation 97% on room air. GENERAL: The patient is awake and alert, in no apparent distress. LUNGS: Decent air entry. There are no rhonchi, crackles, or wheezing present. HEART: Normal rate and regular. ABDOMEN: Soft, nontender, and nondistended. Bowel sounds are positive. MUSCULOSKELETAL: No cyanosis or clubbing. There is no pitting in the bilateral lower extremities. NEUROLOGIC: Grossly nonfocal. LABORATORY DATA: CBC shows pancytopenia. Microbiology tests are all negative to date. Cryptococcal antigen is negative. Acid-fast bacilli, and BAL culture results are negative to date. Blood cultures are negative. Urine culture is negative. ASSESSMENT: 1. Fever of unknown origin. 2. Lymphoma. 3. Pulmonary infiltrate, quite unimpressive. 4. Family history of recent viral illness. DISCUSSION AND PLAN: I will add a respiratory virus panel to the workup that is currently pending. Otherwise, we will continue our empiric antibiotics. Pulmonary will continue to follow for the time being. Job ID: [id number]
--- NOTE | 2019-03-19 17:47 | PRG ---
DATE OF SERVICE: 03/19/2019 SUBJECTIVE: He has had some mild chills this afternoon. No abdominal pain, nausea, vomiting, diarrhea, or constipation. OBJECTIVE: VITAL SIGNS: Temperature 99.3, pulse 87, blood pressure 133/62. GENERAL: He is in no acute distress. Alert and oriented x3. LUNGS: Clear to auscultation bilaterally. HEART: Regular rate and rhythm without murmur. ABDOMEN: Soft, nontender, nondistended. Bowel sounds are present. EXTREMITIES: No lower extremity edema. LABORATORY DATA: White blood cell count 3.7, hemoglobin 8.7, platelets 118, creatinine 1.08. IMPRESSION: 1. Pancytopenia secondary to chemotherapy. I have held his azathioprine for now. 2. Lymphoma. 3. Fever. 4. History of appendiceal cancer, status post resection, which is remote, not related to his current admission. 5. [place] ulcerative colitis, which has been in remission for years. RECOMMENDATIONS: 1. Azathioprine has been held for now. 2. Continue balsalazide. Job ID: [id number]
--- NOTE | 2019-03-19 19:54 | CT ---
Contrast-enhanced CT images abdomen and pelvis. HISTORY: Cough and fever. Contrast-enhanced CT images of the abdomen and pelvis demonstrates a tiny left-sided pleural effusion . Hypodense area seen in the liver likely representing hepatic cysts. The gallbladder is unremarkable. Pancreas unremarkable. There is a large splenic mass extending outside of the splenic capsule. A single enlarged lymph nodes seen in the right lower quadrant of the abdomen axial image #47 measuri ng 6.6 x 11.6 mm. No other significantly enlarged lymph nodes seen. Atherosclerotic calcination seen of the abdominal aorta. There is mild diffuse fusiform dilatation of the aorta measuring up to 2.2 cm in the infrarenal abdominal aorta. No evidence of intra-abdominal or pelvic abscess seen. IMPRESSION: No evidence of abdominal or pelvic abscess. There is a large splenic mass extending to th e left lateral abdominal wall. Transcribed Date/Time: 03/19/2019 8:03 PM
[2019-03-19] MEDS: Rosuvastatin 20 MG TAB PO SCH (20:26)
[2019-03-19] MEDS: Ezetimibe 10 MG TAB PO SCH (20:26)
[2019-03-19] MEDS: Zolpidem Tartrate 5 MG TAB PO PRN (20:30)
[2019-03-19] MEDS: Ibuprofen 800 MG TAB PO PRN (20:30)
--- NOTE | 2019-03-19 23:02 | CON ---
DATE OF CONSULTATION: 03/19/2019 REASON FOR CONSULTATION: History of ulcerative colitis, newly diagnosed B-cell lymphoma, and undergoing treatment with chemotherapy through a port and now fever of unknown origin. HISTORY OF PRESENT ILLNESS: Mr. Craig is a 58-year-old, who has been diagnosed with ulcerative colitis by Dr. Mckinney, I believe, a few years ago and he has been managed with Imuran and one of the oral 5-aminosalicylates and has been in remission with 3 normal colonoscopies over the past few years later, the last one was in 06/2018. He developed prostate cancer and had a prostatectomy done at [facility]. This was an open suprapubic prostatectomy not done with the robotic assistance. 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 He has started developing recurrent episodes of fever after his chemotherapy was started, the first one was treated with ciprofloxacin and the fever defervesced at least temporarily resolved, but then there was recurrence, which failed antimicrobial therapy at this time. Currently, Mr. Craig is awake and does not appear in distress. He has been having some coughing spells, but no sputum production. No headaches. No visual symptoms, sore throat, odynophagia, or dysphagia. No abdominal pain. No genitourinary symptoms. He is voiding without difficulty. No joint symptoms. Has not had any skin disorder. PAST MEDICAL HISTORY: Includes ulcerative colitis in remission after treatment with Imuran and 5-aminosalicylate agent, coronary artery disease, hyperlipidemia. Also history of prostate cancer with prostatectomy at [facility] and complications including urinoma, perforation of the ureter requiring urethroplasty. The patient has had numerous colonoscopies over the past few years, which have been within normal limits. Hypertension, recently diagnosed B-cell lymphoma stage IV and undergoing treatment with CHOP through a port. ALLERGY HISTORY: Negative. 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 No smoking history. Drinks occasionally. FAMILY HISTORY: Noncontributory. CURRENT MEDICATIONS: 1. Tylenol. 2. [place]. 3. Tears Naturale. 4. Aspirin. 5. Colazal. 6. Dulcolax. 7. Cefepime. 8. Zetia. 9. Flonase. 10. Robitussin. 11. Mucinex. 12. Apresoline. 13. Motrin. 14. Levofloxacin. 15. Imodium. 16. Claritin. 17. Micafungin. 18. Eucerin. 19. Zofran. 20. Crestor. 21. Senokot. 22. Vancomycin. PHYSICAL EXAMINATION: VITAL SIGNS: T-max has ranged anywhere from 102 to 103 since the 22 when he was admitted. His blood pressure has been around 130/60, pulse is 87, respirations 16, his weight was 188 pounds. : He does not have a Zamora catheter. He is voiding in the toilet. SKIN: Exam was not remarkable. He does have this port. LYMPHATIC: No lymphadenopathy. HEENT: Alopecia. Ocular movements conjugate. Sclerae white. Conjunctiva normal. Ears and nose exam normal. Oral cavity without particularly remarkable findings. Numerous teeth in place in fairly decent shape. NECK: Supple. No jugular vein distention or carotid bruits. No thyromegaly. LUNGS: Symmetric air entry. S1 and S2. Regular rate. No S3 or S4. ABDOMEN: Soft, not distended or tender. No ascites. No bladder distention. No joint inflammatory activity. EXTREMITIES: Pulses 1+ in dorsalis pedis. Plantar responses are flexor. NEUROLOGIC: Nonfocal including cognitive function. LABORATORY DATA: White cell count 6.1 and now is down to 3.7, hemoglobin 9.5 and 8.7, MCV was 94, platelets are 103,000 and now 118,000. Differential with 89% neutrophils. Chemistry with sodium 133, creatinine 1.11. Liver profile normal. Albumin 3.9, calcium 8.6. Urinalysis was fairly normal. Vancomycin trough 9.5. Multiple samples from microbiology have been negative. Cryptococcus antigen was negative. Histoplasma antigen is pending. Urine, I believe, was submitted. Bronchoscopy specimen was negative for Pneumocystis. No malignant cells were seen. IMAGING STUDIES: Include a PET scan from a few days ago with interval resolution of prior hypermetabolic activity, which is consistent with response to therapy. Interval decrease in size of bilateral pulmonary nodules. There is diffuse ground-glass opacification of lungs bilaterally. The possibility of an atypical infectious inflammatory process. MICROBIOLOGY DATA: We have bacterial culture from the bronchial washing canceled. Acid-fast smear from bronchial washing with no acid-fast bacilli seen. A culture is pending at this time. A respiratory pathogen panel by nuclear acid amplification technique was pending at this time was not collected just yet. ASSESSMENT: 1. Prostate cancer, status post prostatic resection at [facility] with various complications. 2. Ulcerative colitis treated with Imuran and 5-aminosalicylic acid derivative with remission shown by multiple colonoscopies with biopsy. 3. 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 4. CHOP chemotherapy administered via port. 5. Fever of unknown etiology. DISCUSSION: The differential diagnosis includes an opportunistic infections process including fungal and mycobacterial pathogens. Histoplasma antigen in urine has been submitted. We will also submit a QuantiFERON. This may result indeterminate because of his immunosuppression. He does have those areas of uptake on PET scan at the lower lung regions, both right and left side as noted by the previous PET scan and this could be part of the process. Cytomegalovirus disseminated infection would be another possibility. Cryptococcus neoformans infection is less likely. A focal inflammatory process for example related to the previous complications developed following prostatectomy needs to be considered as well and we will order an abdomen and pelvis CT scan to complete the imaging evaluation of his FUO. This to be done with contrast. Noninfectious etiologies such as malignancy associated fever is unlikely in view of the clear-cut response as demonstrated by the last PET scan. Vasculitis also unlikely. Thromboembolism appears to be unlikely as well. I think we probably will soon discontinue antimicrobial therapy unless there is complete resolution of the temperature elevations. Job ID: [id number]
[2019-03-20] MEDS: Sodium Chloride 0.9% 1,000 ML IV SCH ×3 (01:00→21:25)
[2019-03-20] MEDS: Acetaminophen 500 MG TAB PO PRN ×2 (04:04→15:14)
[2019-03-20] MEDS: Ibuprofen 800 MG TAB PO PRN ×2 (04:07→15:20)
[2019-03-20] MEDS: guaiFENesin ER 600 MG TAB PO SCH ×2 (08:17→20:12)
[2019-03-20] MEDS: Saccharomyces boulardii 250 MG CAP PO SCH (08:18)
[2019-03-20] MEDS: Aspirin 325 MG TAB PO SCH (08:18)
[2019-03-20] MEDS: Losartan 25 MG TAB PO SCH (08:19)
[2019-03-20] MEDS: Hydrochlorothiazide 25 MG TAB PO SCH (08:19)
[2019-03-20] MEDS: Fluticasone Propionate Nasal Spray 16 gm Bottle NASAL SCH (08:22)
[2019-03-20] MEDS: Cefepime 2 GM in Sodium Chloride 0.9% 100 ML IVPB SCH ×2 (08:24→20:11)
[2019-03-20 09:05] LABS: #Lymphocytes 0.1 thou/uL (1.20-3.40); #Monocytes 0.4 thou/uL (0.11-0.59); #Neutrophils 3.7 thou/uL (1.40-6.50); %Lymphocytes 3.2 % (21.0-51.0); %Monocytes 10.2 % (0.0-10.0); %Neutrophils 85.6 % (42.0-75.0); Anisocytosis SLIGHT = 6-15 cells (100X) (0-5/hpf); Hemoglobin 7.7 g/dL (14.0-18.0); MDiff Complete? YES; Mean Corpuscular HGB CONC 33.3 g/dL (32.0-36.0); Mean Corpuscular Hemoglobin 31.1 pg (27.0-31.0); Mean Corpuscular Volume 93.5 fL (78.0-98.0); Mean Platelet Volume 9.2 fL (7.4-10.4); Ovalocytes SLIGHT = 2-5 cells (100X) (0-1/hpf); Platelet Count 146 thou/uL (130-400); Polychromasia SLIGHT = 2-3 cells (100X) (0-2/hpf); RBC Distribution Width 20.2 % (11.5-14.5); Red Blood Cell (RBC) Count 2.47 mill/uL (4.70-6.10); White Blood Cell (WBC) Count 4.3 thou/uL (4.8-10.8)
--- NOTE | 2019-03-20 09:44 | PDOC.PN ---
- Subjective Encounter Start Date: 03/20/19 Encounter Start Time: 07:10 today noticed that his fever is reduced but pt is taking tylenol and motrin, he has vague discomfort on left side - Objective Resuscitation Status - Order Detail: 03/17/19 05:43 Resuscitation Status Routine Resuscitation Status: FULL: Full Resuscitation MAR Reviewed: Yes Vital Signs & Weight: Vital Signs (12 hours) Temp Pulse Resp BP Pulse Ox 03/20/19 07:00 98.4 F 81 18 131/70 93 L 03/19/19 23:00 98.6 F Weight Weight 188 lb 0.163 oz I&O: 03/19/19 03/20/19 03/21/19 06:59 06:59 06:59 Intake Total 1850 1150 Output Total 1750 400 Balance 100 750 Result Diagrams: 03/20/19 07:15 03/18/19 05:10 Radiology Reviewed by me: Yes (CT abdomen reviewed) Phys Exam - Physical Examination Constitutional: NAD HEENT: PERRLA, moist MMs, sclera anicteric Neck: no JVD, supple Respiratory: no wheezing, no rales, no rhonchi mediport+ Cardiovascular: RRR, no significant murmur, no rub Gastrointestinal: soft, non-tender, no distention, positive bowel sounds Musculoskeletal: no edema, pulses present Neurological: non-focal, normal sensation, moves all 4 limbs Lymphatic: no nodes Psychiatric: normal affect, A&O x 3 Skin: no rash, normal turgor Dx/Plan (1) Sepsis Code(s): A41.9 - SEPSIS, UNSPECIFIED ORGANISM Status: Acute (2) Multifocal pneumonia Code(s): J18.9 - PNEUMONIA, UNSPECIFIED ORGANISM Status: Acute Comment: with underlying immunocompromised state (3) Anemia, normocytic normochromic Code(s): D64.9 - ANEMIA, UNSPECIFIED Status: Acute Comment: may be related with chemotherapy, lymphoma (4) Lymphoma Status: Acute Qualifiers: Lymphoma type: unspecified type Comment: metastatic to lung and spleen (5) Thrombocytopenia Code(s): D69.6 - THROMBOCYTOPENIA, UNSPECIFIED Status: Acute Comment: may be due to sepsis, as well as possibly lymphoma and chemotherapy (6) Dyslipidemia Code(s): E78.5 - HYPERLIPIDEMIA, UNSPECIFIED Status: Chronic (7) Hypertension Code(s): I10 - ESSENTIAL (PRIMARY) HYPERTENSION Status: Chronic - Plan cont current plan of care, continue antibiotics * monitor labs, his Hb is dropping, cause? * currently on cefepime, elvaquin, vancomycin and micafungin * ID following * medication reviewed as below * symptomatic treatment * so far all culture negative * advised to take tylenol or motrin as needed only * if afebrile for 24-48 hours, then narrow spectrum and consider discharge. Review of Systems - Review of Systems ENT: negative: Ear Pain, Ear Discharge, Nose Pain, Nose Discharge, Nose Congestion, Mouth Pain, Mouth Swelling, Throat Pain, Throat Swelling, Other Respiratory: Cough. negative: Dry, Shortness of Breath, Hemoptysis, SOB with Excertion, Pleuritic Pain, Sputum, Wheezing Cardiovascular: negative: chest pain, palpitations, orthopnea, paroxysmal nocturnal dyspnea, edema, light headedness, other Gastrointestinal: negative: Nausea, Vomiting, Abdominal Pain, Diarrhea, Constipation, Melena, Hematochezia, Other Genitourinary: negative: Dysuria, Frequency, Incontinence, Hematuria, Retention , Other Musculoskeletal: negative: Neck Pain, Shoulder Pain, Arm Pain, Back Pain, Hand Pain, Leg Pain, Foot Pain, Other Skin: negative: Rash, Lesions, Mark, Bruising, Other - Medications/Allergies Allergies/Adverse Reactions: Allergies Allergy/AdvReac Type Severity Reaction Status Date / Time No Known Allergies Allergy Verified 03/17/19 00:13 Medications: Current Medications Acetaminophen (Tylenol) 1,000 mg PO Q8H PRN PRN Reason: Headache/Fever or Pain Last Admin: 03/20/19 04:04 Dose: 1,000 mg Hydrocodone Bitart/Acetaminophen ([place] 5/325) 1 tab PO Q4H PRN PRN Reason: Moderate Pain (4-6) Artificial Tears (Tears Naturale) 2 drop EA EYE PRN PRN PRN Reason: Dry Eyes Aspirin (Aspirin) 325 mg PO DAILY [facility] Last Admin: 03/20/19 08:18 Dose: 325 mg Balsalazide (Colazal) 1,500 mg PO BID [facility] Last Admin: 03/20/19 08:22 Dose: 1,500 mg Bisacodyl (Dulcolax) 10 mg [place] DAILYPRN PRN PRN Reason: Constipation Ezetimibe (Zetia) 10 mg PO HS [facility] Last Admin: 03/19/19 20:26 Dose: 10 mg Fluticasone Propionate (Flonase Nasal [place]) 0 gm NASAL DAILY [facility] Last Admin: 03/20/19 08:22 Dose: 1 spr Guaifenesin (Mucinex) 600 mg PO Q12HR [facility] Last Admin: 03/20/19 08:17 Dose: 600 mg Guaifenesin (Robitussin Sf) 200 mg PO Q4H PRN PRN Reason: Cough Last Admin: 03/18/19 22:17 Dose: 200 mg Hydralazine HCl (Apresoline) 10 mg SLOW IVP Q4H PRN PRN Reason: SBP > 180 and HR < 70 Hydrochlorothiazide (Hydrochlorothiazide) 6.25 mg PO DAILY [facility] Last Admin: 03/20/19 08:19 Dose: 6.25 mg Levofloxacin 750 mg/ Device 150 mls @ 100 mls/hr IVPB Q24HR [facility] Last Admin: 03/20/19 08:00 Dose: 150 mls Cefepime HCl 2 gm/ Sodium (Chloride) 100 mls @ 200 mls/hr IVPB Q12HR [facility] Last Admin: 03/20/19 08:24 Dose: 100 mls Sodium Chloride (Normal Saline 0.9%) 1,000 mls @ 50 mls/hr IV .Q20H [facility] Last Admin: 03/20/19 04:07 Dose: 1,000 mls Micafungin Sodium 100 mg/ (Sodium Chloride) 100 mls @ 100 mls/hr IVPB Q24H [facility] Last Admin: 03/19/19 10:53 Dose: 100 mls Vancomycin HCl 1.5 gm/ Sodium (Chloride) 300 mls @ 200 mls/hr IVPB 1100,2300 [facility] Last Admin: 03/19/19 23:19 Dose: 300 mls Ibuprofen (Motrin) 800 mg PO Q8H PRN PRN Reason: Fever Last Admin: 03/20/19 04:07 Dose: 800 mg Loperamide HCl (Imodium) 2 mg PO PRN PRN PRN Reason: Diarrhea/Loose Stools Loratadine (Claritin) 10 mg PO DAILYPRN PRN PRN Reason: Sinus Symptoms Losartan Potassium (Cozaar) 50 mg PO DAILY [facility] Last Admin: 03/20/19 08:19 Dose: 50 mg Metoprolol Succinate (Toprol Xl) 25 mg PO DAILY [facility] Last Admin: 03/20/19 08:19 Dose: 25 mg Mineral Oil/White Petrolatum (Eucerin Cream) 0 gm TOP BIDPRN PRN PRN Reason: Dry Skin Miscellaneous Medication (Pharmacy To Dose) 1 each IVPB ONE PRN PRN Reason: DOSING Stop: 04/16/19 05:18 Ondansetron HCl (Zofran Odt) 4 mg PO Q6H PRN PRN Reason: Nausea/Vomiting Ondansetron HCl (Zofran) 4 mg IVP Q6H PRN PRN Reason: Nausea/Vomiting Pantoprazole Sodium (Protonix) 40 mg PO DAILY [facility] Last Admin: 03/20/19 08:17 Dose: 40 mg Rosuvastatin Calcium (Crestor) 20 mg PO HS [facility] Last Admin: 03/19/19 20:26 Dose: 20 mg Saccharomyces Boulardii (Florastor) 250 mg PO DAILY [facility] Last Admin: 03/20/19 08:18 Dose: 250 mg Senna/Docusate Sodium (Senokot S) 2 tab PO BID PRN PRN Reason: Constipation Last Admin: 03/19/19 08:39 Dose: 2 tab Sodium Chloride (Flush - Normal Saline) 10 ml IVF PRN PRN PRN Reason: Saline Flush Last Admin: 03/19/19 20:30 Dose: 10 ml Sodium Chloride ([place] Nasal [place] 0.65%) 0 ml EA NARE QIDPRN PRN PRN Reason: Nasal Congestion Throat Lozenges (Cepastat Lozenges) 1 zach PO Q2H PRN PRN Reason: Sore Throat Zolpidem Tartrate (Ambien) 5 mg PO HSPRN PRN PRN Reason: Insomnia Last Admin: 03/19/19 20:30 Dose: 5 mg
[2019-03-20] MEDS: Micafungin 100 MG in Sodium Chloride 0.9% 100 ML IVPB SCH (10:28)
[2019-03-20] MEDS: Vancomycin HCl 1.5 GM in Sodium Chloride 0.9% 250 ML 300 ML IVPB SCH (11:40)
[2019-03-20] MEDS: Vancomycin HCl 1.75 GM in Sodium Chloride 0.9% 500 ML IVPB SCH (12:04)
--- NOTE | 2019-03-20 16:13 | PRG ---
DATE OF SERVICE: 03/20/2019 SUBJECTIVE: Mr. Craig has no abdominal pain or diarrhea or constipation. No blood in the stool. OBJECTIVE: VITAL SIGNS: Temperature is 102.3, pulse 88, blood pressure 141/76. ABDOMEN: Soft, nontender, nondistended. Bowel sounds are present. LABORATORY DATA: Labs today; white blood cell count 4.3, hemoglobin 7.7, platelets 146. IMPRESSION: 1. Sheth-ulcerative colitis, has been in remission for years, on azathioprine and balsalazide. 2. Fever of unknown origin and lymphoma, status post chemotherapy. 3. Pancytopenia. RECOMMENDATIONS: 1. Azathioprine has been discontinued and we can leave this off until the fevers resolve and his blood counts improve. He can remain on the balsalazide. Consideration for restarting azathioprine at a lower dose can be given once he is ready for discharge. 2. I will sign off for now. Please call if GI can be of assistance. Job ID: [id number]
--- NOTE | 2019-03-20 16:23 | PRG ---
DATE OF SERVICE: 03/20/2019 SERVICE: Pulmonary Medicine. INTERVAL HISTORY: The patient is doing okay from respiratory standpoint. There has been no interval change to his condition otherwise. He continues to have intermittent fevers. His last was at 4:00 in the morning. He had shaking rigors for about 30 minutes before he had his fever of 102. He was loaded up with significant amounts of medication and was doing fine until roughly 3:00 this afternoon. At that point, he spiked another fever. He denies any current nausea, vomiting, or diarrhea. His appetite is poor. PHYSICAL EXAMINATION: VITAL SIGNS: Temperature 102.3 currently. Pulse 88, blood pressure 141/76, respirations 18, and saturation 98% on room air. GENERAL: The patient is awake and alert, in no apparent distress. LUNGS: Decent air entry. No prolonged expiratory phase or wheezing is appreciated. HEART: Normal rate, regular. ABDOMEN: Soft, nontender, and nondistended. Bowel sounds are positive. MUSCULOSKELETAL: No cyanosis or clubbing. No pitting in the bilateral lower extremities. NEUROLOGIC: Grossly nonfocal. LABORATORY DATA: WBC 4.3, hemoglobin 7.7 and stable, platelets are 146,000 and improving. Respiratory virus panel is positive for rhinovirus. All culture results including blood culture x4, urine culture, BAL, cryptococcal antigen are negative to date. IMAGING: CT of the abdomen and pelvis demonstrates no acute intraabdominal pathology. ASSESSMENT: 1. Lymphoma. 2. Rhinovirus. 3. Recurring fever, with otherwise unremarkable, extensive workup. 4. Pulmonary infiltrate in the left upper lobe, quite unimpressive. DISCUSSION AND PLAN: I will add some vitamin C. I am not aware of any antiviral therapy that will be effective against this organism. That being said, rhinovirus is more than capable of creating severe inflammatory and infectious profile in immunocompromised host. In fact, in the ICU setting, it has a mortality rate that rivals H1N1 influenza. Dr. Spencer will cover tomorrow for Dr. Rodriguez who returns on Thursday. Job ID: [id number] [facility]
[2019-03-20] MEDS: Ezetimibe 10 MG TAB PO SCH (20:12)
[2019-03-20] MEDS: Rosuvastatin 20 MG TAB PO SCH (20:12)
[2019-03-20] MEDS: Ascorbic Acid 2,000 MG in Sodium Chloride 0.9% 50 ML IVPB SCH (21:02)
[2019-03-21] MEDS: Acetaminophen 500 MG TAB PO PRN ×3 (01:47→23:04)
[2019-03-21] MEDS: Ibuprofen 800 MG TAB PO PRN ×3 (01:47→23:05)
[2019-03-21] MEDS: Vancomycin HCl 1.75 GM in Sodium Chloride 0.9% 500 ML IVPB SCH (01:49)
[2019-03-21 04:14] LABS: #Lymphocytes 0.2 thou/uL (1.20-3.40); #Monocytes 0.4 thou/uL (0.11-0.59); #Neutrophils 3.1 thou/uL (1.40-6.50); %Basophils 0.2 % (0.0-1.0); %Eosinophils 1.2 % (0.0-10.0); %Monocytes 11.2 % (0.0-10.0); %Neutrophils 82.4 % (42.0-75.0); Hemoglobin 7.3 g/dL (14.0-18.0); Mean Corpuscular Hemoglobin 31.1 pg (27.0-31.0); Mean Platelet Volume 8.7 fL (7.4-10.4); Platelet Count 176 thou/uL (130-400); Red Blood Cell (RBC) Count 2.36 mill/uL (4.70-6.10); White Blood Cell (WBC) Count 3.8 thou/uL (4.8-10.8)
[2019-03-21] MEDS: Ascorbic Acid 2,000 MG in Sodium Chloride 0.9% 50 ML IVPB SCH ×2 (08:30→21:12)
[2019-03-21] MEDS: Fluticasone Propionate Nasal Spray 16 gm Bottle NASAL SCH (08:52)
[2019-03-21] MEDS: Sodium Chloride 0.9% 1,000 ML IV SCH (08:59)
[2019-03-21] MEDS: Aspirin 325 MG TAB PO SCH (08:59)
[2019-03-21] MEDS: Saccharomyces boulardii 250 MG CAP PO SCH (08:59)
[2019-03-21] MEDS: guaiFENesin ER 600 MG TAB PO SCH ×2 (09:00→21:13)
[2019-03-21] MEDS: Hydrochlorothiazide 25 MG TAB PO SCH (09:00)
[2019-03-21] MEDS: Losartan 25 MG TAB PO SCH (09:01)
[2019-03-21] MEDS: Cefepime 2 GM in Sodium Chloride 0.9% 100 ML IVPB SCH (09:05)
[2019-03-21] MEDS ORDERED: diphenhydrAMINE 25 MG CAP PO SCH (10:30)
[2019-03-21] MEDS ORDERED: Acetaminophen 500 MG TAB PO SCH (10:30)
[2019-03-21] MEDS ORDERED: Activase 2 MG VIAL CATH SCH (11:15)
[2019-03-21] MEDS ORDERED: Sterile Water 10 ML VIAL IVP SCH (11:15)
--- NOTE | 2019-03-21 12:42 | PRG ---
DATE OF SERVICE: 03/21/2019 SUBJECTIVE: This morning, he is having no difficulty breathing. Cough is clear. OBJECTIVE: VITAL SIGNS: Stable with sats 95% on room air, respiratory rate 18, temperature 99, and blood pressure 133/67. CHEST: No wheezing or crackles. CARDIAC: Normal S1, S2. No gallops or masses. LABORATORY DATA: White count 3.8, H and H are 7.3 and 22. ASSESSMENT: 1. Immunocompromised lymphoma, status post chemotherapy. 2. Superimposed pneumonia, on antibiotics. PLAN: White count is coming up. Continue PT, supportive care. Disposition is as per primary care physician. Job ID: [id number]
[2019-03-21] MEDS: Micafungin 100 MG in Sodium Chloride 0.9% 100 ML IVPB SCH (14:29)
--- NOTE | 2019-03-21 15:11 | PDOC.PN ---
- Subjective Encounter Start Date: 03/21/19 Encounter Start Time: 10:00 Subjective: pt up in bed no complains, still has a low grade fever - Objective Resuscitation Status - Order Detail: 03/17/19 05:43 Resuscitation Status Routine Resuscitation Status: FULL: Full Resuscitation Vital Signs & Weight: Vital Signs (12 hours) Temp Pulse Resp BP BP Pulse Ox 03/21/19 12:00 99.4 F 91 18 133/67 95 03/21/19 08:00 93 L 03/21/19 07:40 97.9 F 76 18 142/76 H 93 L Weight Weight 188 lb 0.163 oz I&O: 03/20/19 03/21/19 03/22/19 06:59 06:59 06:59 Intake Total 1150 2250 0 Output Total 400 1250 Balance 750 1000 0 Result Diagrams: 03/21/19 04:00 03/18/19 05:10 Phys Exam - Physical Examination Respiratory: no wheezing, no rales, no rhonchi, wheezing present, clear to auscultation bilateral Cardiovascular: RRR, no significant murmur, no rub, gallop, irregular Gastrointestinal: soft, non-tender, no distention, positive bowel sounds Musculoskeletal: no edema, pulses present, edema present Dx/Plan (1) Sepsis Code(s): A41.9 - SEPSIS, UNSPECIFIED ORGANISM Status: Acute (2) Lymphoma Status: Acute Qualifiers: Lymphoma type: unspecified type Comment: metastatic to lung and spleen (3) Multifocal pneumonia Code(s): J18.9 - PNEUMONIA, UNSPECIFIED ORGANISM Status: Acute Comment: with underlying immunocompromised state (4) Thrombocytopenia Code(s): D69.6 - THROMBOCYTOPENIA, UNSPECIFIED Status: Acute Comment: may be due to sepsis, as well as possibly lymphoma and chemotherapy (5) H/O prostate cancer Code(s): Z85.46 - PERSONAL HISTORY OF MALIGNANT NEOPLASM OF PROSTATE Status: Chronic (6) H/O right hemicolectomy Code(s): Z90.49 - ACQUIRED ABSENCE OF OTHER SPECIFIED PARTS OF DIGESTIVE TRACT Status: Chronic Comment: for appendeceal cancer - Plan all abx discontinued per oncology, will monitor over 24hr if stable -: possible discharge if ok with all specialities -: bronch cytology negative -: wbc improving, gi recommended low dose azathioprine on discharge * . Review of Systems - Review of Systems Respiratory: negative: Cough, Dry, Shortness of Breath, Hemoptysis, SOB with Excertion, Pleuritic Pain, Sputum, Wheezing Cardiovascular: negative: chest pain, palpitations, orthopnea, paroxysmal nocturnal dyspnea, edema, light headedness, other Gastrointestinal: negative: Nausea, Vomiting, Abdominal Pain, Diarrhea, Constipation, Melena, Hematochezia, Other - Medications/Allergies Allergies/Adverse Reactions: Allergies Allergy/AdvReac Type Severity Reaction Status Date / Time No Known Allergies Allergy Verified 03/17/19 00:13 Medications: Current Medications Acetaminophen (Tylenol) 1,000 mg PO Q8H PRN PRN Reason: Headache/Fever or Pain Last Admin: 03/21/19 13:51 Dose: 1,000 mg Acetaminophen (Tylenol) 500 mg PO ONE [facility] Stop: 03/21/19 21:00 Hydrocodone Bitart/Acetaminophen ([place] 5/325) 1 tab PO Q4H PRN PRN Reason: Moderate Pain (4-6) Alteplase, Recombinant (Cathflo) 4 mg CATH NOW [facility] Stop: 03/21/19 16:00 Last Admin: 03/21/19 11:15 Dose: 2 mg Artificial Tears (Tears Naturale) 2 drop EA EYE PRN PRN PRN Reason: Dry Eyes Aspirin (Aspirin) 325 mg PO DAILY [facility] Last Admin: 03/21/19 08:59 Dose: 325 mg Balsalazide (Colazal) 1,500 mg PO BID [facility] Last Admin: 03/21/19 08:59 Dose: 1,500 mg Bisacodyl (Dulcolax) 10 mg [place] DAILYPRN PRN PRN Reason: Constipation Diphenhydramine HCl (Benadryl) 25 mg PO ONE [facility] Stop: 03/21/19 21:00 Ezetimibe (Zetia) 10 mg PO HS [facility] Last Admin: 03/20/19 20:12 Dose: 10 mg Fluticasone Propionate (Flonase Nasal [place]) 0 gm NASAL DAILY [facility] Last Admin: 03/21/19 08:52 Dose: 1 spr Guaifenesin (Mucinex) 600 mg PO Q12HR [facility] Last Admin: 03/21/19 09:00 Dose: 600 mg Guaifenesin (Robitussin Sf) 200 mg PO Q4H PRN PRN Reason: Cough Last Admin: 03/18/19 22:17 Dose: 200 mg Hydralazine HCl (Apresoline) 10 mg SLOW IVP Q4H PRN PRN Reason: SBP > 180 and HR < 70 Hydrochlorothiazide (Hydrochlorothiazide) 6.25 mg PO DAILY [facility] Last Admin: 03/21/19 09:00 Dose: 6.25 mg Sodium Chloride (Normal Saline 0.9%) 1,000 mls @ 50 mls/hr IV .Q20H [facility] Last Admin: 03/21/19 08:59 Dose: 1,000 mls Ascorbic Acid 2,000 mg/ Sodium (Chloride) 54 mls @ 100 mls/hr IVPB BID [facility] Stop: 03/22/19 09:33 Last Admin: 03/21/19 08:30 Dose: 54 mls Ibuprofen (Motrin) 800 mg PO Q8H PRN PRN Reason: Fever Last Admin: 03/21/19 13:51 Dose: 800 mg Loperamide HCl (Imodium) 2 mg PO PRN PRN PRN Reason: Diarrhea/Loose Stools Loratadine (Claritin) 10 mg PO DAILYPRN PRN PRN Reason: Sinus Symptoms Losartan Potassium (Cozaar) 50 mg PO DAILY [facility] Last Admin: 03/21/19 09:01 Dose: 50 mg Metoprolol Succinate (Toprol Xl) 25 mg PO DAILY [facility] Last Admin: 03/21/19 09:00 Dose: 25 mg Mineral Oil/White Petrolatum (Eucerin Cream) 0 gm TOP BIDPRN PRN PRN Reason: Dry Skin Ondansetron HCl (Zofran Odt) 4 mg PO Q6H PRN PRN Reason: Nausea/Vomiting Ondansetron HCl (Zofran) 4 mg IVP Q6H PRN PRN Reason: Nausea/Vomiting Pantoprazole Sodium (Protonix) 40 mg PO DAILY [facility] Last Admin: 03/21/19 09:00 Dose: 40 mg Rosuvastatin Calcium (Crestor) 20 mg PO HS [facility] Last Admin: 03/20/19 20:12 Dose: 20 mg Saccharomyces Boulardii (Florastor) 250 mg PO DAILY [facility] Last Admin: 03/21/19 08:59 Dose: 250 mg Senna/Docusate Sodium (Senokot S) 2 tab PO BID PRN PRN Reason: Constipation Last Admin: 03/19/19 08:39 Dose: 2 tab Sodium Chloride (Flush - Normal Saline) 10 ml IVF PRN PRN PRN Reason: Saline Flush Last Admin: 03/19/19 20:30 Dose: 10 ml Sodium Chloride ([place] Nasal [place] 0.65%) 0 ml EA NARE QIDPRN PRN PRN Reason: Nasal Congestion Sodium Chloride (Flush - Normal Saline) 10 ml IVF PRN PRN PRN Reason: Saline Flush Sterile Water (Water For Injection) 10 ml IVP NOW [facility] Stop: 03/21/19 16:00 Last Admin: 03/21/19 12:02 Dose: 10 ml Throat Lozenges (Cepastat Lozenges) 1 zach PO Q2H PRN PRN Reason: Sore Throat Zolpidem Tartrate (Ambien) 5 mg PO HSPRN PRN PRN Reason: Insomnia Last Admin: 03/19/19 20:30 Dose: 5 mg
--- NOTE | 2019-03-21 15:39 | PRG ---
DATE OF SERVICE: 03/21/2019 SUBJECTIVE: Feeling well. Feels like his temperature is on the way up now. No headaches. A little bit of cough, but not much. A little bit of nasal stuffiness. No neck pain. No chest pain. No sputum production. No abdominal pain or diarrhea. No genitourinary symptoms. No joint symptoms. OBJECTIVE: VITAL SIGNS: T-max 102.3 yesterday at 3 p.m., BP 130/60. GENERAL: Awake, alert, and oriented. HEENT: Alopecia. Ocular movements conjugate. Oral cavity is normal. NECK: Supple. LUNGS: Symmetric, clear breath sounds. CARDIAC: S1 and S2, regular rate. ABDOMEN: Soft, not distended or tender. EXTREMITIES: Moves all extremities equally. LABORATORY DATA: White cell count 3.8, hemoglobin 7.3, platelets 176,000. Chemistry was not remarkable. Urinalysis was normal. Miscellaneous test, which is histoplasma antigens pending. The respiratory virus PCR showed rhinovirus. A CT scan of the abdomen demonstrated a small left-sided pleural effusion, hepatic cysts, large splenic mass, enlarged lymph nodes in the right lower quadrant of the abdomen. ASSESSMENT AND DISCUSSION: Prostate cancer in remission after resection with various complications postoperatively in the past at [facility]; and history of ulcerative colitis in remission, on Imuran and 5-aminosalicylic acid derivative; and B-cell lymphoma, which has been treated with CHOP chemotherapy with a good response as per latest PET scan; and now fever of unknown etiology with a positive rhinovirus assay. The rhinovirus finding could potentially be associated with the patient's presentation or could be just the unrelated finding. Other opportunistic infections have not yet been ruled out. Lymphoma causing fever is unlikely since there has been clear-cut response after the latest PET scan result, CMV evaluation is still pending for example. Once we have the histoplasma antigen and CMV DNA PCR back, then we can plan further testing or interventions, for example we could try the Karius test if he continues to have fever and none of the other assays are positive. Job ID: [id number]
[2019-03-21] MEDS: Rosuvastatin 20 MG TAB PO SCH (21:12)
[2019-03-21] MEDS: Ezetimibe 10 MG TAB PO SCH (21:13)
[2019-03-21] MEDS: Zolpidem Tartrate 5 MG TAB PO PRN (21:19)
[2019-03-22 05:35] LABS: #Eosinphils 0.1 thou/uL (0.0-0.7); #Lymphocytes 0.3 thou/uL (1.20-3.40); #Monocytes 0.6 thou/uL (0.11-0.59); #Neutrophils 4.1 thou/uL (1.40-6.50); %Basophils 0.2 % (0.0-1.0); %Eosinophils 1.3 % (0.0-10.0); %Lymphocytes 5.1 % (21.0-51.0); %Monocytes 12.4 % (0.0-10.0); %Neutrophils 81.1 % (42.0-75.0); Hemoglobin 9.7 g/dL (14.0-18.0); Mean Corpuscular HGB CONC 33.1 g/dL (32.0-36.0); Mean Corpuscular Hemoglobin 30.7 pg (27.0-31.0); Mean Corpuscular Volume 92.8 fL (78.0-98.0); Mean Platelet Volume 8.4 fL (7.4-10.4); Platelet Count 249 thou/uL (130-400); RBC Distribution Width 19.4 % (11.5-14.5); Red Blood Cell (RBC) Count 3.18 mill/uL (4.70-6.10)
[2019-03-22 08:08] LABS: Fungus Stain Final report (.)
[2019-03-22] MEDS: Acetaminophen 500 MG TAB PO PRN ×2 (08:12→18:10)
[2019-03-22] MEDS: Ibuprofen 800 MG TAB PO PRN ×2 (08:12→18:11)
[2019-03-22] MEDS: Ascorbic Acid 2,000 MG in Sodium Chloride 0.9% 50 ML IVPB SCH (08:18)
[2019-03-22] MEDS: Fluticasone Propionate Nasal Spray 16 gm Bottle NASAL SCH (08:18)
[2019-03-22] MEDS: Aspirin 325 MG TAB PO SCH (08:19)
[2019-03-22] MEDS: Saccharomyces boulardii 250 MG CAP PO SCH (08:19)
[2019-03-22] MEDS: Hydrochlorothiazide 25 MG TAB PO SCH (08:19)
[2019-03-22] MEDS: guaiFENesin ER 600 MG TAB PO SCH ×2 (08:19→20:09)
[2019-03-22] MEDS: Losartan 25 MG TAB PO SCH (08:19)
--- NOTE | 2019-03-22 08:30 | PRG ---
DATE OF SERVICE: 03/22/2019 SUBJECTIVE: Despite aggressive treatment, Mr. Craig continues to have intermittent fevers. So far nothing has come positive from his workup except for rhinovirus from a nasal viral culture. OBJECTIVE: VITAL SIGNS: His temperature is 98.6, it has been as high as 102.1; pulse 82; respirations 18; and O2 saturation 97%. HEENT: Unremarkable except for alopecia. NECK: No JVD. LUNGS: Clear to auscultation without wheezing or rhonchi. CARDIAC: S1 and S2 regular without murmur. ABDOMEN: Soft and nontender. EXTREMITIES: No edema. The patient's antibiotics have all been stopped. LABORATORY DATA: White blood cell count 5, hematocrit 29.5, and platelet count 249. ASSESSMENT: 1. Fever of unknown origin. 2. Lymphoma. 3. Rhinovirus by nasal swab. PLAN: It seems unlikely that rhinovirus is causing the recurrent fevers. Bronchoscopy was negative for Pneumocystis or fungal organisms. Awaiting further laboratory testing ordered by Dr. Cueto, following with you. Job ID: [id number]
--- NOTE | 2019-03-22 10:27 | PDOC.PN ---
- Subjective Encounter Start Date: 03/22/19 Encounter Start Time: 07:00 pt still has fever Patient seen and examined. No new complaints. No overnight events - Objective Resuscitation Status - Order Detail: 03/17/19 05:43 Resuscitation Status Routine Resuscitation Status: FULL: Full Resuscitation MAR Reviewed: Yes Vital Signs & Weight: Vital Signs (12 hours) Temp Pulse Resp BP Pulse Ox 03/22/19 08:10 101.4 F H 03/22/19 07:47 101.4 F H 88 16 162/74 H 98 03/22/19 03:54 98.6 F 03/22/19 00:00 102.1 F H Weight Weight 188 lb 0.163 oz I&O: 03/21/19 03/22/19 03/23/19 06:59 06:59 06:59 Intake Total 2250 650 Output Total 1250 375 Balance 1000 275 Result Diagrams: 03/22/19 05:15 03/18/19 05:10 Phys Exam - Physical Examination Constitutional: NAD HEENT: PERRLA, moist MMs, sclera anicteric Neck: no JVD, supple Respiratory: no wheezing, no rales, no rhonchi Cardiovascular: RRR, no significant murmur, no rub Gastrointestinal: soft, non-tender, no distention, positive bowel sounds Musculoskeletal: no edema, pulses present Neurological: non-focal, normal sensation Lymphatic: no nodes Psychiatric: normal affect, A&O x 3 Skin: no rash, normal turgor Dx/Plan (1) Sepsis Code(s): A41.9 - SEPSIS, UNSPECIFIED ORGANISM Status: Acute (2) Multifocal pneumonia Code(s): J18.9 - PNEUMONIA, UNSPECIFIED ORGANISM Status: Acute Comment: with underlying immunocompromised state (3) Anemia, normocytic normochromic Code(s): D64.9 - ANEMIA, UNSPECIFIED Status: Acute Comment: may be related with chemotherapy, lymphoma (4) Lymphoma Status: Acute Qualifiers: Lymphoma type: unspecified type Comment: metastatic to lung and spleen (5) Thrombocytopenia Code(s): D69.6 - THROMBOCYTOPENIA, UNSPECIFIED Status: Acute Comment: may be due to sepsis, as well as possibly lymphoma and chemotherapy (6) Dyslipidemia Code(s): E78.5 - HYPERLIPIDEMIA, UNSPECIFIED Status: Chronic (7) Hypertension Code(s): I10 - ESSENTIAL (PRIMARY) HYPERTENSION Status: Chronic - Plan cont current plan of care * medication reviewed as below * symptomatic treatment as below * we do not have clear cut reason for his on going fever, ? rhinovirus * so far all culture negative. Review of Systems - Review of Systems Constitutional: fever. negative: chills, sweats, weakness, malaise, other ENT: negative: Ear Pain, Ear Discharge, Nose Pain, Nose Discharge, Nose Congestion, Mouth Pain, Mouth Swelling, Throat Pain, Throat Swelling, Other Respiratory: Cough. negative: Dry, Shortness of Breath, Hemoptysis, SOB with Excertion, Pleuritic Pain, Sputum, Wheezing Cardiovascular: negative: chest pain, palpitations, orthopnea, paroxysmal nocturnal dyspnea, edema, light headedness, other Gastrointestinal: negative: Nausea, Vomiting, Abdominal Pain, Diarrhea, Constipation, Melena, Hematochezia, Other Genitourinary: negative: Dysuria, Frequency, Incontinence, Hematuria, Retention , Other Musculoskeletal: negative: Neck Pain, Shoulder Pain, Arm Pain, Back Pain, Hand Pain, Leg Pain, Foot Pain, Other - Medications/Allergies Allergies/Adverse Reactions: Allergies Allergy/AdvReac Type Severity Reaction Status Date / Time No Known Allergies Allergy Verified 03/17/19 00:13 Medications: Current Medications Acetaminophen (Tylenol) 1,000 mg PO Q8H PRN PRN Reason: Headache/Fever or Pain Last Admin: 03/22/19 08:12 Dose: 1,000 mg Hydrocodone Bitart/Acetaminophen ([place] 5/325) 1 tab PO Q4H PRN PRN Reason: Moderate Pain (4-6) Artificial Tears (Tears Naturale) 2 drop EA EYE PRN PRN PRN Reason: Dry Eyes Aspirin (Aspirin) 325 mg PO DAILY [facility] Last Admin: 03/22/19 08:19 Dose: 325 mg Balsalazide (Colazal) 1,500 mg PO BID [facility] Last Admin: 03/22/19 08:18 Dose: 1,500 mg Bisacodyl (Dulcolax) 10 mg [place] DAILYPRN PRN PRN Reason: Constipation Ezetimibe (Zetia) 10 mg PO HS [facility] Last Admin: 03/21/19 21:13 Dose: 10 mg Fluticasone Propionate (Flonase Nasal [place]) 0 gm NASAL DAILY [facility] Last Admin: 03/22/19 08:18 Dose: 1 spr Guaifenesin (Mucinex) 600 mg PO Q12HR [facility] Last Admin: 03/22/19 08:19 Dose: 600 mg Guaifenesin (Robitussin Sf) 200 mg PO Q4H PRN PRN Reason: Cough Last Admin: 03/18/19 22:17 Dose: 200 mg Hydralazine HCl (Apresoline) 10 mg SLOW IVP Q4H PRN PRN Reason: SBP > 180 and HR < 70 Hydrochlorothiazide (Hydrochlorothiazide) 6.25 mg PO DAILY [facility] Last Admin: 03/22/19 08:19 Dose: 6.25 mg Sodium Chloride (Normal Saline 0.9%) 1,000 mls @ 50 mls/hr IV .Q20H [facility] Last Admin: 03/21/19 08:59 Dose: 1,000 mls Ibuprofen (Motrin) 800 mg PO Q8H PRN PRN Reason: Fever Last Admin: 03/22/19 08:12 Dose: 800 mg Loperamide HCl (Imodium) 2 mg PO PRN PRN PRN Reason: Diarrhea/Loose Stools Loratadine (Claritin) 10 mg PO DAILYPRN PRN PRN Reason: Sinus Symptoms Losartan Potassium (Cozaar) 50 mg PO DAILY [facility] Last Admin: 03/22/19 08:19 Dose: 50 mg Metoprolol Succinate (Toprol Xl) 25 mg PO DAILY [facility] Last Admin: 03/22/19 08:19 Dose: 25 mg Mineral Oil/White Petrolatum (Eucerin Cream) 0 gm TOP BIDPRN PRN PRN Reason: Dry Skin Ondansetron HCl (Zofran Odt) 4 mg PO Q6H PRN PRN Reason: Nausea/Vomiting Ondansetron HCl (Zofran) 4 mg IVP Q6H PRN PRN Reason: Nausea/Vomiting Pantoprazole Sodium (Protonix) 40 mg PO DAILY [facility] Last Admin: 03/22/19 08:19 Dose: 40 mg Rosuvastatin Calcium (Crestor) 20 mg PO HS [facility] Last Admin: 03/21/19 21:12 Dose: 20 mg Saccharomyces Boulardii (Florastor) 250 mg PO DAILY [facility] Last Admin: 03/22/19 08:19 Dose: 250 mg Senna/Docusate Sodium (Senokot S) 2 tab PO BID PRN PRN Reason: Constipation Last Admin: 03/19/19 08:39 Dose: 2 tab Sodium Chloride (Flush - Normal Saline) 10 ml IVF PRN PRN PRN Reason: Saline Flush Last Admin: 03/22/19 08:19 Dose: 10 ml Sodium Chloride ([place] Nasal [place] 0.65%) 0 ml EA NARE QIDPRN PRN PRN Reason: Nasal Congestion Sodium Chloride (Flush - Normal Saline) 10 ml IVF PRN PRN PRN Reason: Saline Flush Throat Lozenges (Cepastat Lozenges) 1 zach PO Q2H PRN PRN Reason: Sore Throat Zolpidem Tartrate (Ambien) 5 mg PO HSPRN PRN PRN Reason: Insomnia Last Admin: 03/21/19 21:19 Dose: 5 mg
[2019-03-22] MEDS: Sodium Chloride 0.9% 1,000 ML IV SCH (14:45)
[2019-03-22] MEDS: Rosuvastatin 20 MG TAB PO SCH (20:09)
[2019-03-22] MEDS: Ezetimibe 10 MG TAB PO SCH (20:09)
[2019-03-23 06:37] LABS: Band 19 % (5-11); Hemoglobin 8.4 g/dL (14.0-18.0); Lymphocytes 5 % (21-51); MDiff Complete? YES; Mean Corpuscular HGB CONC 32.9 g/dL (32.0-36.0); Mean Corpuscular Hemoglobin 30.7 pg (27.0-31.0); Mean Corpuscular Volume 93.4 fL (78.0-98.0); Mean Platelet Volume 8.7 fL (7.4-10.4); Monocytes 17 % (0-10); Neutrophil 59 % (42-75); Platelet Count 220 thou/uL (130-400); RBC Distribution Width 19.5 % (11.5-14.5); Red Blood Cell (RBC) Count 2.74 mill/uL (4.70-6.10)
[2019-03-23] MEDS: Losartan 25 MG TAB PO SCH (08:13)
[2019-03-23] MEDS: Acetaminophen 500 MG TAB PO PRN ×2 (08:13→21:03)
[2019-03-23] MEDS: Ibuprofen 800 MG TAB PO PRN ×2 (08:13→21:05)
[2019-03-23] MEDS: Saccharomyces boulardii 250 MG CAP PO SCH (08:13)
[2019-03-23] MEDS: Hydrochlorothiazide 25 MG TAB PO SCH (08:13)
[2019-03-23] MEDS: Aspirin 325 MG TAB PO SCH (08:14)
[2019-03-23] MEDS: guaiFENesin ER 600 MG TAB PO SCH ×2 (08:14→21:07)
[2019-03-23] MEDS: Fluticasone Propionate Nasal Spray 16 gm Bottle NASAL SCH (08:14)
[2019-03-23] MEDS: Sodium Chloride 0.9% 1,000 ML IV SCH (08:25)
--- NOTE | 2019-03-23 15:12 | PRG ---
DATE OF SERVICE: 03/23/2019 SUBJECTIVE: The patient is seen and examined at bedside. He does not have much appetite. Overall, he feels fair. He does not have much pain or any other complaints to offer. OBJECTIVE: VITAL SIGNS: Blood pressure is 153/72, temperature is 102.5, pulse is 92, respiratory rate 18, O2 saturation is 98% on 2 L by nasal cannula. HEENT: His head is atraumatic and normocephalic. Eyes are PERRLA. Sclerae are nonicteric. Oral mucosa is moist. NECK: Supple. No lymphadenopathy. Thyroid is not palpable. LUNGS: Clear. HEART: S1, S2 normal. No S3. No S4. No murmur. ABDOMEN: Soft, nontender, nondistended. EXTREMITIES: No clubbing, cyanosis, or edema. NEUROLOGICAL: He is alert and oriented x4. There are no any motor or sensory deficits. Cranial nerves are intact. LABORATORY DATA: Labs showed white count of 3.0, hemoglobin 8.4, hematocrit 25.6, platelet count is 220,000. Microbiology, no new findings. IMPRESSION: 1. Fever of unclear etiology. 2. Anemia. 3. Lymphoma. 4. Thrombocytopenia, resolved. 5. Hypertension. 6. Dyslipidemia. DISCUSSION: We are still waiting for CMV DNA PCR to come back. Dr. Cueto ordered Karius Test today. The patient still has temperature up to 102.5. The oncologist recommends to remove his port. The case was discussed with Dr. Cueto, who agrees to discharge him home tomorrow if we do not have more answers by tomorrow and follow up with him on an outpatient basis. For now, we will keep him in the hospital, continue current regimen with Tylenol and nonsteroidal anti-inflammatory agents for fever, and continue his other home medications except for azathioprine. Job ID: [id number]
--- NOTE | 2019-03-23 16:58 | PRG ---
DATE OF SERVICE: 03/23/2019 SUBJECTIVE: Still having fever intermittently with sweats, but otherwise denies headaches. No back pain. A little bit of pain in the left lateral flank area just around the rib cage. No cough, sputum production, or dyspnea. No abdominal pain. No genitourinary symptoms. No diarrhea. No bleeding. OBJECTIVE: VITAL SIGNS: T-max 102.5, BP 150/70, pulse 92, respirations 18, O2 saturation 98%. GENERAL: Appears in no distress. HEENT: Ocular movements conjugate. Oral cavity normal. NECK: Supple. LUNGS: Symmetric, clear breath sounds. CARDIAC: S1 and S2. Regular rate. No S3 or S4. ABDOMEN: Soft, not distended or tender. No ascites. No bladder distention. LABORATORY DATA: White cell count 3.0, hemoglobin 8.4, platelets 220 with 59% neutrophils, 19% bands. Sodium 135, creatinine 1.08. Normal liver profile. Histoplasma antigen was negative. CMV DNA PCR is pending. All the cultures are negative, and the respiratory virus PCR with rhinovirus. ASSESSMENT AND DISCUSSION: Prostate cancer, in remission with various postop complications. History of ulcerative colitis, in remission, on Imuran and 5-aminosalicylic acid. B-cell lymphoma, treated with CHOP chemotherapy with good response per last PET scan and now fever of unknown etiology. Positive rhinovirus assay, which I believe is not directly related to the patient's fever. Possibility of an alternate opportunistic infection is foremost in our differential diagnosis. Lymphoma is less likely recrudescence of ulcerative colitis is not ruled out, but less likely. CMV DNA PCR is pending. We will wait for the Karius test to see if there are any other organisms that might be identified by that method. Could consider discharge planning and we will continue workup in the outpatient setting since he is quite clinically stable. Job ID: [id number]
[2019-03-23] MEDS: Rosuvastatin 20 MG TAB PO SCH (21:06)
[2019-03-23] MEDS: Ezetimibe 10 MG TAB PO SCH (21:06)
[2019-03-23] MEDS: Zolpidem Tartrate 5 MG TAB PO PRN (21:07)
[2019-03-24 06:32] LABS: Hemoglobin 8.3 g/dL (14.0-18.0); Mean Corpuscular HGB CONC 31.5 g/dL (32.0-36.0); Mean Corpuscular Hemoglobin 29.8 pg (27.0-31.0); Mean Corpuscular Volume 94.6 fL (78.0-98.0); Mean Platelet Volume 8.3 fL (7.4-10.4); Platelet Count 260 thou/uL (130-400); White Blood Cell (WBC) Count 3.4 thou/uL (4.8-10.8)
[2019-03-24 06:59] LABS: Band 18 % (5-11); Eosinophils 1 % (0-10); Lymphocytes 16 % (21-51); Metamyelocyte 1 % (0-0); Monocytes 18 % (0-10); Myelocyte 1 % (0-0); Neutrophil 45 % (42-75)
[2019-03-24 07:00] LABS: Ovalocytes SLIGHT = 2-5 cells (100X) (0-1/hpf); Platelet Morphology Comment Appears Adequate; Polychromasia SLIGHT = 2-3 cells (100X) (0-2/hpf)
[2019-03-24 07:40] VITALS: BP 126/58
[2019-03-24] MEDS: Saccharomyces boulardii 250 MG CAP PO SCH (09:10)
[2019-03-24] MEDS: Hydrochlorothiazide 25 MG TAB PO SCH (09:11)
[2019-03-24] MEDS: Losartan 25 MG TAB PO SCH (09:11)
[2019-03-24] MEDS: guaiFENesin ER 600 MG TAB PO SCH (09:12)
[2019-03-24] MEDS: Aspirin 325 MG TAB PO SCH (09:12)
[2019-03-24] MEDS: Fluticasone Propionate Nasal Spray 16 gm Bottle NASAL SCH (09:16)
--- NOTE | 2019-03-24 10:09 | PRG ---
DATE OF SERVICE: 03/24/2019 SUBJECTIVE: He continues to have intermittent fevers, especially at night. OBJECTIVE: VITAL SIGNS: On exam, temperature is currently 98.8, but it has been as high as 102.5 last night. Pulse 75, respirations 16, O2 saturation 97%. HEENT: Unremarkable. NECK: No adenopathy, JVD, or bruits. LUNGS: Clear anteriorly. CARDIAC: S1 and S2, regular. ABDOMEN: Soft. EXTREMITIES: No edema. LABORATORY DATA: White blood cell count 3.4, hematocrit 26.5, and platelet count 260. Cultures show no growth to-date. ASSESSMENT: Fever of unknown origin, status post bronchoscopy with negative results. PLAN: Awaiting some ancillary lab studies that were done by Dr. Cueto. The patient is currently off antibiotics. I have nothing to add to current treatment. I will sign off. Please re-call if further assistance is needed. Job ID: [id number]
--- NOTE | 2019-03-24 10:50 | PDOC.PN ---
- Subjective Encounter Start Date: 03/24/19 Encounter Start Time: 07:00 pt gets intermittent fever, pt is clinically stable - Objective Resuscitation Status - Order Detail: 03/17/19 05:43 Resuscitation Status Routine Resuscitation Status: FULL: Full Resuscitation MAR Reviewed: Yes Vital Signs & Weight: Vital Signs (12 hours) Temp Pulse Resp BP Pulse Ox 03/24/19 08:00 97 03/24/19 07:38 98.8 F 75 16 126/58 L 97 03/24/19 04:00 97.9 F 03/23/19 23:59 98.7 F Weight Weight 188 lb 0.163 oz I&O: 03/23/19 03/24/19 03/25/19 06:59 06:59 06:59 Intake Total 750 1999 Output Total 7 Balance 750 1992 Result Diagrams: 03/24/19 05:45 03/18/19 05:10 Phys Exam - Physical Examination Constitutional: NAD HEENT: PERRLA, moist MMs, sclera anicteric Neck: no JVD, supple Respiratory: no wheezing, no rales, no rhonchi Cardiovascular: RRR, no significant murmur, no rub Gastrointestinal: soft, non-tender, no distention, positive bowel sounds Musculoskeletal: no edema, pulses present Neurological: non-focal, normal sensation, moves all 4 limbs Lymphatic: no nodes Psychiatric: normal affect, A&O x 3 Skin: no rash, normal turgor Dx/Plan (1) Sepsis Code(s): A41.9 - SEPSIS, UNSPECIFIED ORGANISM Status: Acute (2) Multifocal pneumonia Code(s): J18.9 - PNEUMONIA, UNSPECIFIED ORGANISM Status: Acute Comment: with underlying immunocompromised state (3) Anemia, normocytic normochromic Code(s): D64.9 - ANEMIA, UNSPECIFIED Status: Acute Comment: may be related with chemotherapy, lymphoma (4) Lymphoma Status: Acute Qualifiers: Lymphoma type: unspecified type Comment: metastatic to lung and spleen (5) Thrombocytopenia Code(s): D69.6 - THROMBOCYTOPENIA, UNSPECIFIED Status: Acute Comment: may be due to sepsis, as well as possibly lymphoma and chemotherapy (6) Dyslipidemia Code(s): E78.5 - HYPERLIPIDEMIA, UNSPECIFIED Status: Chronic (7) Hypertension Code(s): I10 - ESSENTIAL (PRIMARY) HYPERTENSION Status: Chronic - Plan cont current plan of care * as per GI - hold imuran until fever subsides * as per ID ok to dc and follow up outpt * oncology will decide about chemo after discharge * as per id, not need of port removal * medication reviewed as below * symptomatic treatment. Review of Systems - Review of Systems ENT: negative: Ear Pain, Ear Discharge, Nose Pain, Nose Discharge, Nose Congestion, Mouth Pain, Mouth Swelling, Throat Pain, Throat Swelling, Other Respiratory: negative: Cough, Dry, Shortness of Breath, Hemoptysis, SOB with Excertion, Pleuritic Pain, Sputum, Wheezing Cardiovascular: negative: chest pain, palpitations, orthopnea, paroxysmal nocturnal dyspnea, edema, light headedness, other Gastrointestinal: negative: Nausea, Vomiting, Abdominal Pain, Diarrhea, Constipation, Melena, Hematochezia, Other Genitourinary: negative: Dysuria, Frequency, Incontinence, Hematuria, Retention , Other Musculoskeletal: negative: Neck Pain, Shoulder Pain, Arm Pain, Back Pain, Hand Pain, Leg Pain, Foot Pain, Other - Medications/Allergies Allergies/Adverse Reactions: Allergies Allergy/AdvReac Type Severity Reaction Status Date / Time No Known Allergies Allergy Verified 03/17/19 00:13 Medications: Current Medications Acetaminophen (Tylenol) 1,000 mg PO Q8H PRN PRN Reason: Headache/Fever or Pain Last Admin: 03/23/19 21:03 Dose: 1,000 mg Hydrocodone Bitart/Acetaminophen ([place] 5/325) 1 tab PO Q4H PRN PRN Reason: Moderate Pain (4-6) Artificial Tears (Tears Naturale) 2 drop EA EYE PRN PRN PRN Reason: Dry Eyes Aspirin (Aspirin) 325 mg PO DAILY [facility] Last Admin: 03/24/19 09:12 Dose: 325 mg Balsalazide (Colazal) 1,500 mg PO BID [facility] Last Admin: 03/24/19 09:11 Dose: 1,500 mg Bisacodyl (Dulcolax) 10 mg AL DAILYPRN PRN PRN Reason: Constipation Ezetimibe (Zetia) 10 mg PO HS [facility] Last Admin: 03/23/19 21:06 Dose: 10 mg Fluticasone Propionate (Flonase Nasal [place]) 0 gm NASAL DAILY [facility] Last Admin: 03/24/19 09:16 Dose: 1 spr Guaifenesin (Mucinex) 600 mg PO Q12HR [facility] Last Admin: 03/24/19 09:12 Dose: 600 mg Guaifenesin (Robitussin Sf) 200 mg PO Q4H PRN PRN Reason: Cough Last Admin: 03/18/19 22:17 Dose: 200 mg Hydralazine HCl (Apresoline) 10 mg SLOW IVP Q4H PRN PRN Reason: SBP > 180 and HR < 70 Hydrochlorothiazide (Hydrochlorothiazide) 6.25 mg PO DAILY [facility] Last Admin: 03/24/19 09:11 Dose: 6.25 mg Ibuprofen (Motrin) 800 mg PO Q8H PRN PRN Reason: Fever Last Admin: 03/23/19 21:05 Dose: 800 mg Loperamide HCl (Imodium) 2 mg PO PRN PRN PRN Reason: Diarrhea/Loose Stools Loratadine (Claritin) 10 mg PO DAILYPRN PRN PRN Reason: Sinus Symptoms Losartan Potassium (Cozaar) 50 mg PO DAILY [facility] Last Admin: 03/24/19 09:11 Dose: 50 mg Metoprolol Succinate (Toprol Xl) 25 mg PO DAILY [facility] Last Admin: 03/24/19 09:11 Dose: 25 mg Mineral Oil/White Petrolatum (Eucerin Cream) 0 gm TOP BIDPRN PRN PRN Reason: Dry Skin Ondansetron HCl (Zofran Odt) 4 mg PO Q6H PRN PRN Reason: Nausea/Vomiting Ondansetron HCl (Zofran) 4 mg IVP Q6H PRN PRN Reason: Nausea/Vomiting Pantoprazole Sodium (Protonix) 40 mg PO DAILY [facility] Last Admin: 03/24/19 09:11 Dose: 40 mg Rosuvastatin Calcium (Crestor) 20 mg PO HS [facility] Last Admin: 03/23/19 21:06 Dose: 20 mg Saccharomyces Boulardii (Florastor) 250 mg PO DAILY [facility] Last Admin: 03/24/19 09:10 Dose: 250 mg Senna/Docusate Sodium (Senokot S) 2 tab PO BID PRN PRN Reason: Constipation Last Admin: 03/19/19 08:39 Dose: 2 tab Sodium Chloride (Flush - Normal Saline) 10 ml IVF PRN PRN PRN Reason: Saline Flush Last Admin: 03/22/19 08:19 Dose: 10 ml Sodium Chloride ([place] Nasal [place] 0.65%) 0 ml EA NARE QIDPRN PRN PRN Reason: Nasal Congestion Sodium Chloride (Flush - Normal Saline) 10 ml IVF PRN PRN PRN Reason: Saline Flush Throat Lozenges (Cepastat Lozenges) 1 zach PO Q2H PRN PRN Reason: Sore Throat Zolpidem Tartrate (Ambien) 5 mg PO HSPRN PRN PRN Reason: Insomnia Last Admin: 03/23/19 21:07 Dose: 5 mg
[2019-03-24 12:13] LABS: MDiff Complete? YES
[2019-03-24 12:27] VITALS: TEMP 98.7
--- NOTE | 2019-03-24 12:28 | DIS ---
DATE OF ADMISSION: 03/16/2019 DATE OF DISCHARGE: 03/24/2019 PRIMARY CARE PHYSICIAN: Dr. Jay Mathew. DISCHARGE DISPOSITION: Home. PRIMARY DISCHARGE DIAGNOSES: 1. Fever of unknown origin. 2. Suspected for multifocal pneumonia treated in the hospital, sepsis resolved. SECONDARY DISCHARGE DIAGNOSES: Normocytic normochromic anemia, lymphoma of spleen, thrombocytopenia, dyslipidemia, history of prostate cancer, history of right hemicolectomy, history of ulcerative colitis, hypertension. PRIMARY PROCEDURE/OPERATION: Bronchoscopy. RADIOLOGICAL INVESTIGATION: CT angiography showed multifocal infiltration. Abdomen and pelvis CT scan showed lymphoma of spleen. SIGNIFICANT LABORATORY DATA: WBC 3.4, hemoglobin 8.3, platelet 260. Sodium 135, creatinine 1.08. LFT normal. Urinalysis unremarkable. Urine histo negative. Fungal culture so far negative. DISCHARGE MEDICATIONS: 1. Aspirin 325 mg p.o. daily. 2. Balsalazide disodium 1500 mg b.i.d. 3. Zetia 10 mg p.o. at bedtime. 4. Losartan with hydrochlorothiazide 100/12.5 half tablet daily. 5. Toprol-XL 25 mg daily. 6. Crestor 20 mg p.o. at bedtime. 7. Flonase nasal spray daily. CONTRAINDICATION: None. CODE STATUS: Full code. INPATIENT MECHANIC HELPER: Dr. Rodriguez was consulted and who did bronchoscopy. Dr. Ute Bennett was following while in the hospital. Dr. Dimitris Vazquez, jockey valet was consulted while in hospital. Dr. Cueto, Infectious Disease was following while in hospital. TEST RESULTS PENDING ON DISCHARGE: CMV DNA and thiopurine metabolite level. ALLERGIES: NO KNOWN DRUG ALLERGIES. DISCHARGE PLAN: Posthospital, the patient will follow up with Dr. Cueto in 1 week. The patient will make appointment with primary care physician. The patient will follow up with Dr. Ute Bennett. HOSPITAL COURSE: A 58-year-old male, who has lymphoma spleen and he is getting chemotherapy through Dr. Bennett. His lymphoma is improving as per recent PET scan. He was having intermittent high-grade fever at home and that is why he was sent to hospital for admission. Initially, CT angiography was done, which showed suspected multifocal pulmonary infiltration as well as suspected for metastatic disease versus diffuse pneumonia. He was treated with broad-spectrum antibiotic therapy. Dr. Rodriguez saw this patient and he did bronchoscopy and subsequently, bronchoscopy came back negative for PCP as well as any kind of lymphoma and culture was also negative. As the patient had ulcerative colitis and that is why Dr. Dimitris Vazquez was consulted and he recommended to hold Imuran until fever subsides. Thiopurine metabolite level was sent and result is pending by the time of discharge. We have held Imuran on discharge and that will be resumed when the patient is afebrile and his laboratory parameters improve. Dr. Ute Bennett was also following while in hospital. As per her, this patient's lymphoma is improving and is not the cause of fever. Dr. Cueto, Infectious Disease was consulted and he ordered CT of abdomen and pelvis, which was essentially unremarkable. Urine histo was came back negative. CMV DNA is pending. The patient while in the hospital continued to get intermittent fever. We discontinued antibiotics as well as antifungal coverage while in hospital and he did not require any medication upon discharge. He will follow up with all consultants as mentioned above. The patient has some allergic rhinitis symptoms and that is why we added Flonase nasal spray on discharge. The patient overall doing very well. He clinically is much stable. He is ambulatory around the hospital, and he is comfortable to go home. The patient is seen and examined at bedside today. Please see my progress note from today for further detail. Job ID: [id number]
[2019-03-24 14:31] LABS: QuantiFERON-TB Gold Plus Negative (Negative)
[2019-03-25 16:09] LABS: CMV DNA-PCR Test Negative (Negative)
[2019-03-26 14:53] LABS: Reference Lab Name KARIUS
== END 2019-03-24 13:15 | disposition home or self-care (01) | DRG 871 ==
LOC: ERS 17:09 → ONC 21:28
PROVIDERS: ADMIT Hospitalist; ATTEND Hospitalist
PROC: 0B9G8ZX Drainage of Left Upper Lung Lobe, Via Natural or Artificial Opening Endoscopic, Diagnostic (ICD-10-PCS; principal; 2019-03-17)
DX: A41.50 Gram-negative sepsis, unspecified (principal); J15.6 Pneumonia due to other Gram-negative bacteria; D61.810 Antineoplastic chemotherapy induced pancytopenia; E87.1 Hypo-osmolality and hyponatremia; C78.00 Secondary malignant neoplasm of unspecified lung; C78.89 Secondary malignant neoplasm of other digestive organs; K51.90 Ulcerative colitis, unspecified, without complications; C83.33 Diffuse large B-cell lymphoma, intra-abdominal lymph nodes; I25.10 Atherosclerotic heart disease of native coronary artery without angina pectoris; E78.5 Hyperlipidemia, unspecified; I10 Essential (primary) hypertension; T45.1X5A Adverse effect of antineoplastic and immunosuppressive drugs, initial encounter; B34.8 Other viral infections of unspecified site; J30.9 Allergic rhinitis, unspecified; Z90.49 Acquired absence of other specified parts of digestive tract; Z90.89 Acquired absence of other organs; Z90.79 Acquired absence of other genital organ(s); Z92.21 Personal history of antineoplastic chemotherapy
CPT/HCPCS: 36415; 36430; 71046; 71275; 74177; 80048; 80053; 80202; 81001; 83605; 85025; 86480; 86850; 86900; 86901; 87040; 87070; 87086; 87102; 87116; 87205; 87206; 87385; 87497; 87633; 87798; 87804; 87899; 88112; 88305; 88312; 93970; 96365; 96366; 96367; A4216; J0131; J0692; J1642; J1885; J1956; J2001; J2248; J2405; J2704; J2997; J3010; J3370; J3490; J7050; J7500; J8499; P9016; Q9966

== ENCOUNTER 2019-03-29 09:25 | Day surgery (SDC) | payer BC ==
[2019-03-28 12:43] VITALS: BMI 27.4
[2019-03-29] MEDS ORDERED: METHOTREXATE SODIUM IT SCH (09:45)
--- NOTE | 2019-03-29 11:41 | RAD ---
Exam: LUMBAR PUNCTURE FOR CSF ACQUISITION AND FOR CHEMOTHERAPY INJECTION LUMBAR PUNCTURE WITH FLUOROSCOPY GUIDANCE: HISTORY: B-cell lymphoma. Request made to administer intrathecal chemotherapy. COMPARISON: 03/02/2019. EXPOSURE: 0.3 minutes, 35.8 mGy/sq cm. FINDINGS: Two billing administrator views of lumbar spine demonstrate 5 lumbar type vertebral bodies. Pseudoarthrosis of the le ft and right sacral ala with the sacrum. No fractures Successful lumbar puncture. A total of 8 mL of clear CSF was collected for evaluation. Patient was ad ministered a total of 12 mg of methotrexate intrathecally. TECHNIQUE: Consent obtained to perform a lumbar puncture for CSF acquisition as well as intrathecal chemotherapy administration. The L2-L3 level was deemed appropriate. Skin was prepped and draped in a sterile fashion. 1% lidocain e, buffered with sodium bicarbonate used for local anesthesia. Under fluoroscopic guidance, a 22-gauge spinal needle was advanced into the CSF space. Via a short tubing catheter, total of 8 mL of clear CSF was collected for evaluation. Through the spinal needle, total of 12 mg of methotrexate was administered over 5 minutes. There are no immediate or postprocedure complications. IMPRESSION: Successful lumbar puncture for CSF acquisition as well as for intrathecal chemotherapy administration Transcribed Date/Time: 03/29/2019 12:18 PM
== END 2019-03-29 12:25 | disposition home or self-care (01) ==
LOC: RAD 09:25
PROVIDERS: ATTEND Internal Medicine Hematology & Oncology
PROC: 009U3ZZ Drainage of Spinal Canal, Percutaneous Approach (ICD-10-PCS; principal; 2019-03-29)
DX: C85.10 Unspecified B-cell lymphoma, unspecified site (principal); C61 Malignant neoplasm of prostate; I10 Essential (primary) hypertension; E78.00 Pure hypercholesterolemia, unspecified; I25.10 Atherosclerotic heart disease of native coronary artery without angina pectoris; Z87.891 Personal history of nicotine dependence
CPT/HCPCS: 62270; 88112; 88184; J9250

== ENCOUNTER 2019-04-05 14:15 | Outpatient (CLI) | payer BC ==
--- NOTE | 2019-04-05 14:45 | CT ---
CT Chest WO Con History: Pneumocystosis Comparison: CT chest March 16, 2019 Findings: There is a single solid dominant nodule left upper lobe which measures approximate 7 x 6 mm , previously 10 x 9 mm. The upper lobe opacities have markedly improved. No acute superimposed infectious process. No pneumothorax or effusion. No mediastinal adenopathy. Multiple hepatic hypodensities. The large splenic mass appears to be centr ally necrotic with a transverse dimension up to 6 cm, slightly decreased. Port catheter tip in good position. No thoracic spine compression fracture. No displaced rib fracture. Impression: 1. Interval resolution of atypical infectious process. 2. Continued size decreased left upper lobe pulmonary nodule.
== END 2019-04-05 14:16 | disposition home or self-care (01) ==
LOC: CT 14:15
PROVIDERS: ATTEND Internal Medicine Infectious Disease
DX: B59 Pneumocystosis (principal); R91.1 Solitary pulmonary nodule
CPT/HCPCS: 36415; 71250; 80053; 85025

== ENCOUNTER 2019-04-19 09:45 | Day surgery (SDC) | payer BC ==
[2019-04-18 10:24] VITALS: BMI 26.9
[2019-04-19] MEDS ORDERED: Prevnar 13-Val Conj/PF 0.5 ML SYRINGE IM ONE (10:45)
[2019-04-19] MEDS ORDERED: Methotrexate Sodium/PF 12 MG in Admixture Fee 1 EACH IT SCH (10:45)
[2019-04-19 10:50] VITALS: BP 122/74; TEMP 98.8
--- NOTE | 2019-04-19 13:18 | RAD ---
FLUOROSCOPICALLY GUIDED LUMBAR PUNCTURE INTRATHECAL CHEMOTHERAPY INJECTION: DATE: 04/19/2019 HISTORY: 58-year-old male with B-cell lymphoma, here for third intrathecal chemotherapy injection. TECHNIQUE: Signed informed consent obtained. Patient placed prone on fluoroscopy table. Skin of lower back was d raped in usual sterile fashion. 25-gauge needle used to apply buffered lidocaine. From right paramedian interlaminar approach, 22-gauge spinal needle advanced into spinal canal and thecal sac at L2-3. Upon risk return of clear CSF, a total of 9 mL of CSF was collected in 4 separate vials, 1 mL in first vial, 3 mL in second vial, 3 mL in third vial, and 2 mL in third vial. 12 mg of methotre xate sodium in a volume of 0.48 mL in tuberculin syringe was slowly injected intrathecally. Spinal needle was removed. Patient tolerated the procedure well. No complications. Total fluoroscopy time: 1.1 minutes Dose area product: 93.4 uGy*m^2. IMPRESSION: Successful lumbar puncture and successful intrathecal methotrexate injection.
== END 2019-04-19 12:25 | disposition home or self-care (01) ==
LOC: RAD 09:45
PROVIDERS: ATTEND Internal Medicine Hematology & Oncology
PROC: 00JU3ZZ Inspection of Spinal Canal, Percutaneous Approach (ICD-10-PCS; principal; 2019-04-19)
DX: C85.17 Unspecified B-cell lymphoma, spleen (principal); I10 Essential (primary) hypertension; I25.10 Atherosclerotic heart disease of native coronary artery without angina pectoris; I25.2 Old myocardial infarction; E78.00 Pure hypercholesterolemia, unspecified; Z87.891 Personal history of nicotine dependence; Z79.2 Long term (current) use of antibiotics; Z79.82 Long term (current) use of aspirin; Z79.899 Other long term (current) drug therapy; Z90.49 Acquired absence of other specified parts of digestive tract; Z95.5 Presence of coronary angioplasty implant and graft
CPT/HCPCS: 62270; 88112; 88184; J9250

== ENCOUNTER 2019-04-28 11:54 | Emergency (ER) | payer BC ==
[2019-04-28] MEDS ORDERED: Dexamethasone 10 MG/ML VIAL ONE (12:54)
[2019-04-28] MEDS ORDERED: Ketorolac Tromethamine 30 MG/ML VIAL ONE (12:54)
[2019-04-28 14:29] LABS: ALT (SGPT) 12 U/L (8-55); AST (SGOT) 18 U/L (5-34); Albumin 3.6 g/dL (3.5-5.0); Alkaline Phosphatase 65 U/L (40-150); Anion Gap 12 mmol/L (10-20); BUN (Urea Nitrogen) 10 mg/dL (8.4-25.7); Bilirubin, Total 0.2 mg/dL (0.2-1.2); Calc. Creatinine Clearance 0 mL/min (70-130); Calcium 9.2 mg/dL (7.8-10.44); Carbon Dioxide 26 mmol/L (22-29); Chloride 104 mmol/L (98-107); Estimated GFR-MDRD Greater than 90; Globulin 2.3 g/dL (2.4-3.5); Glucose 91 mg/dL (70-105); Potassium 3.9 mmol/L (3.5-5.1); Protein, Total 5.9 g/dL (6.0-8.3); Sodium 138 mmol/L (136-145)
[2019-04-28 14:34] LABS: Anisocytosis SLIGHT = 6-15 cells (100X) (0-5/hpf); Band 27 % (5-11); Lymphocytes 1 % (21-51); MDiff Complete? YES; Mean Corpuscular HGB CONC 32.4 g/dL (32.0-36.0); Mean Corpuscular Volume 98.7 fL (78.0-98.0); Mean Platelet Volume 9.6 fL (7.4-10.4); Metamyelocyte 3 % (0-0); Monocytes 10 % (0-10); Myelocyte 2 % (0-0); Neutrophil 55 % (42-75); Platelet Count 105 thou/uL (130-400); Platelet Morphology Comment Appears Decreased; RBC Distribution Width 19.8 % (11.5-14.5); Red Blood Cell (RBC) Count 2.51 mill/uL (4.70-6.10); White Blood Cell (WBC) Count 7.1 thou/uL (4.8-10.8)
--- NOTE | 2019-04-28 15:06 | CT ---
CT neck soft tissues with contrast: DATE: 04/28/2019 HISTORY: 58-year-old male with sore throat pharyngitis. No improvement on antibiotics. Leukopenia, on chemothe rapy. FINDINGS: There is thickening with mildly increased enhancement of the mucosa of the larynx, right side greater than left, with partial effacement of right piriform sinus and thickening of the right area of glottic folds greater than the left. There is mild asymmetry between the right and left vocal cords s uggestive of focal cord paresis on one side. The rest of the pharyngeal mucosal space outside of the larynx, is normal. Bilateral maxillary sinuses and the visualized mid and lower portions of ethmo id and sphenoid sinuses, and bilateral tympanomastoid cavities, are clear. There is no abscess. There is a right IJ venous access port catheter traveling through the SVC, distal tip outside of the field of view. There is a 1 x 0.6 x 0.6 cm noncalcified left upper lobe pulmonary nodule. No cervical lymphadenopathy. The parapharyngeal, retropharyngeal, english and reading instructor, sublingual, parotid, periv ertebral, and posterior cervical, spaces, demonstrate no major acute or aggressive process. Mild atherosclerosis of carotid bulbs without high-grade stenosis. No destructive osseous lesion. IMPRESSION: 1. Evidence for acute laryngitis. 2. No evidence of abscess. 3. Left upper lobe pulmonary nodule. 4. Right internal jugular implantable vascular access port.
[2019-04-28 15:12] LABS: Bilirubin Negative (Negative); Blood, Urine Negative (Negative); Clarity Clear (Clear); Glucose, Urine (Dipstick) Normal (Negative); Leukocyte Negative Leu/uL (Negative); Nitrite Negative (Negative); Protein, Urine (Dipstick) Negative (Neg-Trace); Urobilinogen Normal mg/dL (Less than 2)
== END 2019-04-28 17:02 | disposition home or self-care (01) ==
LOC: ERS 11:54
DX: B37.9 Candidiasis, unspecified (principal); I25.2 Old myocardial infarction; E78.5 Hyperlipidemia, unspecified; I10 Essential (primary) hypertension; Z79.899 Other long term (current) drug therapy; Z79.82 Long term (current) use of aspirin
CPT/HCPCS: 70491; 80053; 81003; 85025; 96361; 96374; 96375; J1100; J1885

== ENCOUNTER 2019-05-12 08:37 | Day surgery (SDC) | payer BC ==
[2019-05-11 13:51] VITALS: BMI 26.9
[2019-05-12] MEDS ORDERED: ADMIXTURE FEE CHEMO IT SCH (09:30)
[2019-05-12] MEDS ORDERED: METHOTREXATE SODIUM IT SCH (09:30)
--- NOTE | 2019-05-12 11:39 | RAD ---
Intrathecal chemotherapy administration: 05/12/2019 HISTORY: Intrathecal chemotherapy administration, history of lymphoma FINDINGS: Informed consent obtained prior to the procedure. Skin overlying the lower lumbar spine was prepped and draped in normal sterile fashion and anesthetiz ed with 1% buffered lidocaine. With intermittent fluoroscopic guidance, a 22-gauge spinal needle was advanced into the thecal sac at the L4-5 level and removal of the stylet yielded clear cerebrospinal fluid. Subsequently, a 0.5 cc solution containing 12 mg of methotrexate was injected intrathecally. Needle w as removed. Patient tolerated the procedure well. IMPRESSION: Successful fluoroscopic guided intrathecal methotrexate administration as detailed above.
[2019-05-12 11:44] VITALS: BP 145/77; TEMP 97.8
[2019-05-12] MEDS ORDERED: Prevnar 13-Val Conj/PF 0.5 ML SYRINGE IM ONE (14:00)
== END 2019-05-12 11:30 | disposition home or self-care (01) ==
LOC: RAD 08:37
PROVIDERS: ATTEND Internal Medicine Hematology & Oncology
PROC: 009U3ZX Drainage of Spinal Canal, Percutaneous Approach, Diagnostic (ICD-10-PCS; principal; 2019-05-12)
DX: C83.37 Diffuse large B-cell lymphoma, spleen (principal); C18.1 Malignant neoplasm of appendix; I25.10 Atherosclerotic heart disease of native coronary artery without angina pectoris; B59 Pneumocystosis; I10 Essential (primary) hypertension; E78.00 Pure hypercholesterolemia, unspecified; K51.90 Ulcerative colitis, unspecified, without complications; I25.2 Old myocardial infarction; Z95.5 Presence of coronary angioplasty implant and graft; Z85.46 Personal history of malignant neoplasm of prostate; Z87.891 Personal history of nicotine dependence; Z79.82 Long term (current) use of aspirin; Z79.2 Long term (current) use of antibiotics; Z79.899 Other long term (current) drug therapy
CPT/HCPCS: 62270; J9250

== ENCOUNTER 2019-09-19 13:16 | Outpatient (CLI) | payer BC ==
--- NOTE | 2019-09-19 13:14 | PET ---
Radionucleotide PET scan with CT attenuation correction HISTORY: Appendiceal cancer. B-cell lymphoma. Restaging. COMPARISON: 06/02/2019. FINDINGS: Physiologic uptake of radiotracer throughout the enteric system and along each urinary trac t. A focal area of increased radiotracer uptake is now associated with a somewhat linear multinodular soft tissue nodular lesion within the far anterior abdominal cavity just to the right of midline, at the level of the inferior poles of the kidneys. The most medial component of the multinodular focus measures up to 1.4 cm. Maximum SUV associated wit h the abnormality is 3.4. No nodule or hypermetabolic activity were present at this location on the prior exam. No other new areas of hypermetabolic activity. Small noncalcified nodule hypermetabolic nodule at the left upper lobe is stable. There is calcification throughout the arterial structures. The lobular fluid density at the inferior margin of the spleen is unchanged in appearance, without abnormal uptak e. IMPRESSION: New abnormality within the far anterior mid abdomen, just to the right of midline. The ne wly hypermetabolic lesions may represent slightly enlarged lymph nodes or other new neoplastic focus. The location and morphology make the lesion not amenable to percutaneous biopsy. [place] score 3.
== END 2019-09-19 13:17 | disposition home or self-care (01) ==
LOC: PET 13:16
PROVIDERS: ATTEND Internal Medicine Hematology & Oncology
DX: C18.1 Malignant neoplasm of appendix (principal); C83.37 Diffuse large B-cell lymphoma, spleen; R97.0 Elevated carcinoembryonic antigen [CEA]
CPT/HCPCS: 78815; A9552

== ENCOUNTER 2020-07-21 12:17 | Emergency (ER) | payer BC ==
--- NOTE | 2020-07-21 13:18 | RAD ---
EXAM: Chest 2 views: HISTORY: Pain near the Mediport that travels to the right shoulder COMPARISON: 03/16/2019 FINDINGS: There is a normal-sized cardiomediastinal silhouette. There is a 1.2 area of nodularity projecting ov er the left lower lobe. No acute osseous abnormality. The Mediport is unchanged in position. IMPRESSION: Possible left lower lobe pulmonary nodule
[2020-07-21 13:45] LABS: Mean Corpuscular HGB CONC 33.5 g/dL (32.0-36.0); Mean Corpuscular Hemoglobin 31.5 pg (27.0-31.0); Mean Corpuscular Volume 93.9 fL (78.0-98.0); RBC Distribution Width 18.4 % (11.5-14.5); Red Blood Cell (RBC) Count 4.46 mill/uL (4.70-6.10); White Blood Cell (WBC) Count 2.5 thou/uL (4.8-10.8)
[2020-07-21 13:58] LABS: ALT (SGPT) 29 U/L (8-55); AST (SGOT) 38 U/L (5-34); Albumin 4.5 g/dL (3.4-4.8); Alkaline Phosphatase 63 U/L (40-110); Anion Gap 15 mmol/L (10-20); BUN (Urea Nitrogen) 17 mg/dL (8.4-25.7); Bilirubin, Total 0.6 mg/dL (0.2-1.2); Calc. Creatinine Clearance 0 mL/min (70-130); Calcium 9.4 mg/dL (7.8-10.44); Carbon Dioxide 26 mmol/L (23-31); Chloride 103 mmol/L (98-107); Estimated GFR-MDRD 74; Globulin 2.7 g/dL (2.4-3.5); Glucose 103 mg/dL (80-115); Potassium 4.8 mmol/L (3.5-5.1); Protein, Total 7.2 g/dL (5.8-8.1); Sodium 139 mmol/L (136-145)
[2020-07-21 14:06] LABS: Band 3 % (5-11); Eosinophils 2 % (0-10); Lymphocytes 14 % (21-51); MDiff Complete? YES; Mean Platelet Volume 9.7 fL (7.4-10.4); Monocytes 16 % (0-10); Neutrophil 65 % (42-75); Platelet Count 97 thou/uL (130-400); Platelet Morphology Comment Appears Decreased; RBC Morphology Normal
--- NOTE | 2020-07-21 14:13 | ULT ---
EXAM: Right upper extremity venous ultrasound HISTORY: Right upper extremity pain around the Mediport COMPARISON: None TECHNIQUE: Multiplanar grayscale and color Doppler images were obtained in a right upper extremity ve nous ultrasound. Spectral analysis of the Doppler waveforms were performed. FINDINGS: The internal jugular vein demonstrates normal compression and flow without evidence of thrombus. The subclavian vein demonstrates normal flow and augmentation without evidence of thrombus. The axillary and brachial veins demonstrate normal compression, flow, and augmentation without eviden ce of thrombus. The venous structures distal to the elbow are patent without thrombus. The cephalic and basilic veins are patent. IMPRESSION: No evidence of DVT.
--- NOTE | 2020-07-21 14:26 | RAD ---
EXAM: Mediport check using fluoroscopic guidance HISTORY: Pain around Mediport COMPARISON: None Exposure: 0.4 minutes of fluoroscopic time and 233.5 mcg/sq m FINDINGS: The Mediport was accessed with a Nicole needle. Contrast was given through the Nicole needle. The contr ast filled the Mediport and the Mediport tubing without difficulty. There is no evidence of leakage of the contrast from the Mediport or the Mediport tubing. The Mediport was then flushed with sterile saline. IMPRESSION: No Mediport abnormality
== END 2020-07-21 15:40 | disposition home or self-care (01) ==
LOC: ERS 12:17
DX: R07.89 Other chest pain (principal); M54.2 Cervicalgia; M25.512 Pain in left shoulder; I25.2 Old myocardial infarction; E78.5 Hyperlipidemia, unspecified; E78.00 Pure hypercholesterolemia, unspecified; I10 Essential (primary) hypertension; Z79.82 Long term (current) use of aspirin; Z79.899 Other long term (current) drug therapy
CPT/HCPCS: 36415; 36598; 71046; 80053; 84484; 85025; 93005; 96372; J1642

== ENCOUNTER 2020-12-17 16:59 | Emergency (ER) | payer BC, SELFPAY ==
[2020-12-17 18:23] LABS: #Lymphocytes 0.4 thou/uL (1.20-3.40); #Monocytes 0.3 thou/uL (0.11-0.59); #Neutrophils 2.1 thou/uL (1.40-6.50); %Eosinophils 1.1 % (0.0-10.0); %Lymphocytes 13.8 % (21.0-51.0); %Monocytes 8.9 % (0.0-10.0); %Neutrophils 76.2 % (42.0-75.0); Hemoglobin 7.1 g/dL (14.0-18.0); Mean Corpuscular HGB CONC 33.5 g/dL (32.0-36.0); Mean Corpuscular Hemoglobin 30.9 pg (27.0-31.0); Platelet Count 61 thou/uL (130-400); RBC Distribution Width 17.4 % (11.5-14.5); White Blood Cell (WBC) Count 2.8 thou/uL (4.8-10.8)
[2020-12-17 18:26] LABS: INR-International Normal Ratio 1.1; PTT 41.7 sec (22.9-36.1)
[2020-12-17 18:41] LABS: ALT (SGPT) 13 U/L (8-55); AST (SGOT) 20 U/L (5-34); Alkaline Phosphatase 71 U/L (40-110); Anion Gap 15 mmol/L (10-20); BUN (Urea Nitrogen) 15 mg/dL (8.4-25.7); Bilirubin, Total 0.4 mg/dL (0.2-1.2); Calc. Creatinine Clearance 0 mL/min (70-130); Calcium 8.6 mg/dL (7.8-10.44); Carbon Dioxide 26 mmol/L (23-31); Chloride 103 mmol/L (98-107); Globulin 2.6 g/dL (2.4-3.5); Glucose 103 mg/dL (80-115); Potassium 3.7 mmol/L (3.5-5.1); Protein, Total 6.6 g/dL (5.8-8.1); Sodium 140 mmol/L (136-145)
== END 2020-12-17 22:02 | disposition home or self-care (01) ==
LOC: ERS 16:59
DX: D61.810 Antineoplastic chemotherapy induced pancytopenia (principal); C18.1 Malignant neoplasm of appendix; J32.9 Chronic sinusitis, unspecified; I25.2 Old myocardial infarction; I10 Essential (primary) hypertension; E78.00 Pure hypercholesterolemia, unspecified; F17.220 Nicotine dependence, chewing tobacco, uncomplicated
CPT/HCPCS: 36415; 36430; 80053; 85025; 85610; 85730; 86850; 86900; 86901; 99284; P9016

== ENCOUNTER 2021-07-16 12:21 | Outpatient (CLI) | payer BC | END 2021-07-16 12:22 | disposition home or self-care (01) | LOC: BICCT 12:21 | PROVIDERS: ATTEND Orthopaedic Surgery | DX: S42.142A Displaced fracture of glenoid cavity of scapula, left shoulder, initial encounter for closed fracture (principal); R91.1 Solitary pulmonary nodule ==